=== PATIENT | female | born 1950 | race Caucasian/White ===

== ENCOUNTER 2017-01-01 22:52 | Inpatient (IN) | payer BC, MEDICAID ==
[~2017-01-01] VITALS: Ht 157.5 cm; Wt 106.8 kg
--- NOTE | 2017-01-01 22:53 | NUR ---
Patient to ER bed 4 to gown for evaluation. Side rails up. Report given to Jacquelyn BRAY.
[2017-01-01 23:00] VITALS: BP 139/62; PULSE 105; RESP 16; TEMP 97.5; O2SAT 99
--- NOTE | 2017-01-01 23:01 | NUR ---
Patient sent to ER from [facility] C/O severe constipation. Patient states that she is taking narcotic pain medication for severe pain and is constipated. States the facility gave her MOM but the nurse spilled it all before she got it. 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
--- NOTE | 2017-01-01 23:02 | NUR ---
ER MD Latif at bedside for evaluation
[2017-01-01] MEDS ORDERED: LACTULOSE 20 GM/30 ML UDC PO ONE (23:15)
[2017-01-01] MEDS ORDERED: ALBU2.5V7 INH (23:16)
[2017-01-01] MEDS ORDERED: ASPI-1063 PO (23:21)
[2017-01-01] MEDS ORDERED: NOR10 PO (23:21)
[2017-01-01] MEDS ORDERED: LIP20 PO (23:21)
[2017-01-01] MEDS ORDERED: AMLO10TA88 PO (23:21)
[2017-01-01] MEDS ORDERED: DIPH25CA83 PO (23:23)
[2017-01-01] MEDS ORDERED: CALC667T5 PO (23:29)
[2017-01-01] MEDS ORDERED: FURO40TA5 PO (23:30)
[2017-01-01] MEDS ORDERED: FOLI-43 PO (23:30)
[2017-01-01 23:31] LABS: BASOPHILS # (AUTO) 0.1 K/uL (0.0-0.2); EOSINOPHILS # (AUTO) 0.4 K/uL (0.0-0.4); HEMATOCRIT 25.4 % (36-48); LYMPHOCYTES # (AUTO) 1.3 K/uL (1.0-5.5); MEAN CORPUSCULAR VOLUME 94 fL (79.0-98.0)
[2017-01-01] MEDS ORDERED: GABA-533 PO (23:31)
[2017-01-01] MEDS ORDERED: INSU100V11 SQ (23:32)
[2017-01-01] MEDS ORDERED: METO-442 PO (23:33)
[2017-01-01 23:34] LABS: BASOPHILS % (AUTO) 0.6 % (0.0-2.0); EOSINOPHILS % (AUTO) 3.7 % (0.0-4.0); LYMPHOCYTES % (AUTO) 10.7 % (20.5-51.5); MEAN CORPUSCULAR HEMOGLOBIN 30 pg (27-31); MEAN CORPUSCULAR HGB CONC 32 % (32-36); MONOCYTES # (AUTO) 0.7 K/uL (0.0-1.0); MONOCYTES % (AUTO) 6.1 % (1.7-9.3); NEUTROPHILS # (AUTO) 9.2 K/uL (1.8-7.7); NEUTROPHILS % (AUTO) 78.9 % (40.0-70.0); PLATELET COUNT (AUTO) 387 K/uL (130-430); RED CELL DISTRIBUTION WIDTH 19.6 % (9.0-15.0); WHITE BLOOD COUNT (AUTO) 11.7 K/uL (4.8-10.8)
[2017-01-01] MEDS ORDERED: HYDR-1189 PO (23:34)
[2017-01-01] MEDS ORDERED: AMIN30LI2 PO (23:34)
[2017-01-01] MEDS ORDERED: TRAM50TA92 PO (23:35)
[2017-01-01] MEDS ORDERED: FOLI0.8T2 PO (23:35)
[2017-01-01 23:37] LABS: CALCIUM 9.1 mg/dL (8.4-11.0); CREATININE 2.43 mg/dL (0.55-1.30); POTASSIUM 3.4 mmol/L (3.5-5.1)
[2017-01-01] MEDS ORDERED: INSU100V32 SUBCUT (23:40)
[2017-01-01 23:41] LABS: PROTHROMBIN TIME 11.2 SECS (9.5-12.5)
--- NOTE | 2017-01-01 23:43 | NUR ---
Medication reconciliation completed with information provided by Kate garcia.
[2017-01-01 23:44] LABS: TOTAL BILIRUBIN 0.4 mg/dL (0.0-1.0)
[2017-01-01 23:45] LABS: ALBUMIN 2.5 g/dL (3.4-4.8); TOTAL PROTEIN, SERUM 6.3 g/dL (6.4-8.3)
[2017-01-02] VITALS (9 sets, daily range): BP systolic 105–131; BP diastolic 58–75; PULSE 74–100; RESP 16–20; TEMP 96.4–98.2; O2SAT 91–100
--- NOTE | 2017-01-02 00:21 | NUR ---
# 20 gauge angiocath placed to right ac. Use of asceptic technique. Opsite placed over site. Blood return noted. Flushed with 10 cc of normal saline. No evidence of infiltration noted. Patient tolerated well.
[2017-01-02] MEDS ORDERED: ALBUTEROL SULFATE 0.083% 2.5 MG/3 ML VIAL.NEB INH PRN (00:45)
--- NOTE | 2017-01-02 01:00 | NUR ---
Patient will be admitted to care of DR MENDOSA. Admitted to [facility] IN unit. Will go to room 135. Belongings list completed. Summary report printed. Report given to ASA.
--- NOTE | 2017-01-02 01:12 | NUR ---
Transfer to [facility]. IV present no sign or symptom of infiltration.
[2017-01-02] MEDS ORDERED: NA PHOS,M-B/NA PHOS,DI-BA 118 ML (FLEET ENEMA) RC ONE (01:15)
--- NOTE | 2017-01-02 01:19 | NUR ---
CONSULTATION PAGED REASON FOR CONSULTATION:ESRD-DIALYSIS WAS CONSULT CALLED?Y PERSON WHO WAS NOTIFIED:MATTY CONSULTING PHYSICIAN:JOCY POLO (RENÉE LYON WARNING COORDINATION METEOROLOGIST) PRINCIPAL SOFTWARE ARCHITECT SPECIALTY:NEPHROLOGY PRINCIPAL SOFTWARE ARCHITECT PHONE NUMBER:[phone]
--- NOTE | 2017-01-02 01:19 | NUR ---
ADMISSION NOTE Received patient from ER via gurney. Patient admitted with diagnosis of severe constipation. Patient is awake, alert, oriented X 3. Patient oriented to hospital room, call light, toileting, pain management and safety-teach back done. Patient informed that Elsa will be her nurse and that their room number is 105b. Personal belongings checked and Belongings List documented. Call light within reach.
--- NOTE | 2017-01-02 01:25 | NUR ---
INITIAL NOTE Patient resting on the bed. Respiration even and unlabored. No acute distress. Skin warm and dry to touch. SL intact to RAC, no redness, no swelling, patent. AV shunt on left upper thigh intact with bruit/thrill present, no bleeding. Per patient a new AV shunt on left upper arm not used yet, intact with multiple terrence, no bleeding, bruit/thrill present. Multiple wounds on the left foot and left lower extremity. Left second toes amputation with multiple sutures and black color around all the toes. Discussed the safety issue, use call light when need help, and plan of care, verbally understanding. safety measure maintained. Call light within reached. Bed in low position, bed alarm on, side rails up. Will continue to monitor.
[2017-01-02] MEDS: MORPHINE 2 MG/ML INJ. SYRINGE IVP PRN (02:46)
--- NOTE | 2017-01-02 03:15 | NUR ---
ROUND Patient resting on the bed with eyes closed. No acute distress. Safety measure maintained. Bed in low position, side rails up, bed alarm on. Call light within reached. Continue to monitor.
--- NOTE | 2017-01-02 05:05 | NUR ---
ROUND Patient resting on the bed with eyes closed. No acute distress. Call light within reached. Safety measure maintained. Bed in low position, side rails up, bed alarm on. Continue to monitor.
--- NOTE | 2017-01-02 05:19 | NUR ---
CALLED DR. MENDOSA [facility] REGARDING ORDER OF FLEET ENEMA Informed Dr. Mendosa the order of fleet enema not given yet because fleet enema is contraindicated with renal failure patient and patient on hemodialysis. Dr. Mendosa with order to DC fleet enema and GI consult with Dr. Coffey. Order read back and okay to
--- NOTE | 2017-01-02 05:30 | NUR ---
CONSULT: CONSULT CALLED FOR DR. CHACON I SPOKE WITH MATTY HILL REASON FOR CONSULT: SEVERE FECAL IMPACTION NUMBER I CALLED [phone] MENDOSA
--- NOTE | 2017-01-02 06:40 | NUR ---
CLOSING NOTE Patient resting on the bed. Respiration even and unlabored. No acute distress. Skin warm and dry to touch. SL intact to RAC, no redness, no swelling, patent. VS stable. Still no BM at this time. Safety measure maintained. Call light within reached. Bed in low position, bed alarm on, side rails up. Will endorse to morning shift nurse.
[2017-01-02 06:59] LABS: BASOPHILS % (AUTO) 0.4 % (0.0-2.0); EOSINOPHILS # (AUTO) 0.4 K/uL (0.0-0.4); EOSINOPHILS % (AUTO) 3.8 % (0.0-4.0); HEMATOCRIT 24.1 % (36-48); HEMOGLOBIN 7.7 g/dL (12.0-16.0); LYMPHOCYTES # (AUTO) 1.7 K/uL (1.0-5.5); LYMPHOCYTES % (AUTO) 15.9 % (20.5-51.5); MEAN CORPUSCULAR HEMOGLOBIN 30 pg (27-31); MEAN CORPUSCULAR HGB CONC 32 % (32-36); MEAN CORPUSCULAR VOLUME 94 fL (79.0-98.0); MONOCYTES # (AUTO) 1.1 K/uL (0.0-1.0); MONOCYTES % (AUTO) 10.8 % (1.7-9.3); NEUTROPHILS # (AUTO) 7.4 K/uL (1.8-7.7); NEUTROPHILS % (AUTO) 69.1 % (40.0-70.0); PLATELET COUNT (AUTO) 401 K/uL (130-430); RED BLOOD CELL COUNT(AUTO) 2.56 MIL/uL (4.2-6.2); RED CELL DISTRIBUTION WIDTH 19.8 % (9.0-15.0); WHITE BLOOD COUNT (AUTO) 10.6 K/uL (4.8-10.8)
[2017-01-02 07:16] LABS: ALBUMIN 2.5 g/dL (3.4-4.8); CALCIUM 9.4 mg/dL (8.4-11.0); CREATININE 2.78 mg/dL (0.55-1.30); POTASSIUM 3.5 mmol/L (3.5-5.1); TOTAL BILIRUBIN 0.3 mg/dL (0.0-1.0); TOTAL PROTEIN, SERUM 6.4 g/dL (6.4-8.3)
--- NOTE | 2017-01-02 08:30 | NUR ---
AM ROUNDS Late entry due to patient care. Patient received, alert awake and oriented x4. VSS. Patient denies pain and SOB at this time. Respirations even and unlabored. youth nutritional monitor in place, rhythm noted. IV site patent and intact. Patient tolerated breakfast well. Plan of care discussed, patient verbalized understanding. No further needs at this time. Encouraged patient to call for assistance, patient verbalized understanding. Safety and fall precautions in place, call light within reach. Will continue to monitor. Addendum: 01/02/17 at 1001 by Sabrina Love RN WRONG PATIENT ENTRY PLEASE DISREGARD.
[2017-01-02] MEDS: ASPIRIN 81 MG TABLET(ECOTRIN) PO SCH (08:37)
[2017-01-02] MEDS: FUROSEMIDE 40 MG TABLET PO SCH (08:37)
[2017-01-02] MEDS: NEPHROVITE, (FOLIC ACID/VITAMIN B COMP W-C 1 TAB) PO SCH (08:37)
[2017-01-02] MEDS: METOPROLOL TARTRATE 50 MG TABLET PO SCH (08:38)
[2017-01-02] MEDS: amLODIPine BESYLATE 10 MG TABLET PO SCH (08:39)
[2017-01-02] MEDS: GABAPENTIN 400 MG CAPSULE PO SCH ×3 (08:39→21:21)
--- NOTE | 2017-01-02 08:41 | NUR ---
AM ROUNDS Patient received, alert awake and oriented x4. VSS. Patient denies pain at this time, states SOB when eating only. Oxygen saturation WNL, respirations even and unlabored. Patient has poor appetite at this time. IV site patent and intact. Left shunt noted, patient stated it has not been used for dialysis yet. HD access is to left lower extremity. Left foot necrosis noted. Right foot heel wound noted. Plan of care discussed, patient verbalized understanding. No further needs at this time. Safety and fall precautions in place, call light within reach. Will continue to monitor.
[2017-01-02] MEDS ORDERED: NON-FORMULARY MEDICATION (Amino Acids/Protein Hydrolys (Pro-Stat Liquid) 30 ML) PO SCH (09:00)
--- NOTE | 2017-01-02 10:00 | NUR ---
ROUNDS Late entry due to patient care. Patient repositioned with pillow support, denied pain or SOB at this time. No further needs, will continue to monitor.
[2017-01-02] MEDS ORDERED: BISACODYL 5 MG TABLET.DR (DULCOLAX) PO ONE (11:15)
--- NOTE | 2017-01-02 11:36 | NUR ---
CALLED SURGICAL CONSULT DR CROW, RE: L FOOT GANGRENE. SPOKE TO HIM ON HIS CELL
--- NOTE | 2017-01-02 12:00 | NUR ---
ROUNDS Late entry due to patient care. Patient awake, denies pain at this time. Patient has poor appetite, encouraged to eat, patient only drank liquids at this time. No further needs. Will continue to monitor.
[2017-01-02] MEDS ORDERED: PANTOPRAZOLE SODIUM 40 MG TAB PO ONE (12:15)
[2017-01-02 12:22] LABS: BLOOD GAS PH 7.403 (7.350-7.450)
[2017-01-02 12:23] LABS: ABG TOTAL HEMOGLOBIN 9.1 G/dL (12.0-18.0); BLOOD GAS BASE EXCESS 7.2 mmol/L (-3.0-3.0); BLOOD GAS COHb% 1.1 % (0.5-1.5); BLOOD GAS HHB 16.1 % (0.0-6.0); BLOOD O2Hb% 82.5 % (94.0-97.0)
--- NOTE | 2017-01-02 14:30 | NUR ---
ROUNDS Patient repositioned with pillow support, scant semi formed brown bowel movement noted. No further needs at this time. Safety and fall precautions in place, call light within reach, will continue to monitor. Dr. Araya at beside.
[2017-01-02] MEDS: HYDROcodone/ACETAMIN 5-325 MG TAB (NORCO/ VICODIN) PO PRN (15:24)
--- NOTE | 2017-01-02 16:29 | NUR ---
ROUNDS Patient sleeping at this time, chest rise noted. No acute distress. Will continue to monitor. Safety and fall precautions in place, call light within reach. Will continue to monitor.
--- NOTE | 2017-01-02 18:03 | NUR ---
CLOSING NOTE Patient repositioned with pillow support. Blood sugar 131 no insulin coverage need. Dinner at bedside, patient stated she "wanted to sleep" at this time. Heels elevated with pillow support. No significant change in patient status. All needs met throughout shift, safety and fall precautions in place, call light within reach. Will endorse to next shift.
[2017-01-02] MEDS: traMADol HCL HCL 50 MG TABLET (ULTRAM) PO PRN (18:54)
--- NOTE | 2017-01-02 19:15 | NUR ---
change iof shift.pt.presents stable status.pt.presents o2 @room air:pt.states she is fine w/out the o2 vis nasal cannulae @this hour.iv lock:@located rt.antecubital.lower extremity involvement.rt.leg;cellulitis.lt.foot:gangrene. consulted 4 surgery;pt.preference is :who familiar w/ pt.pt.presents lt.groin av-shunt.lt.arm av-shunt; recent placement:not accessed.pt.is 2 b dialized in am:01/03/17.
--- NOTE | 2017-01-02 20:00 | NUR ---
pt.assessed.v/s assessed.values w/in normal limits.pt.repositioned.no request:@this hour.call light palced w/in pt's reach.
[2017-01-02] MEDS ORDERED: INSULIN GLARGINE 100 UNITS/ML 10 ML VIAL SUBCUT SCH (21:00)
--- NOTE | 2017-01-02 21:00 | NUR ---
2100p medications administered.blood glucose assessed.150mg/dl:no insulin coverage per slding scale. i have administered levemir:15-units.opt.requested cup of tea.kami provided the tea.
[2017-01-02] MEDS: ATORVASTATIN 20 MG TABLET PO SCH (21:21)
--- NOTE | 2017-01-02 22:00 | NUR ---
pt.assessed.pt.repositioned.pt.presents quiescent status.calm,asleep.call light palced w/in pt's reach.
--- NOTE | 2017-01-03 | NUR ---
pt.assessed.pt. repositioned.no distress/discomfort manifested:pillow placed underneath lt.leg/foot. call light placed w/in pt.reach.
[2017-01-03 00:03] VITALS: BP 137/64; PULSE 81; RESP 18; TEMP 98.1; O2SAT 91
--- NOTE | 2017-01-03 02:00 | NUR ---
pt.assessed.pt.repositioned.pt.presents quiescent affect;calm,asleep.no distress./discomfort manifested. call light placed w/in pt's reach.
[2017-01-03] MEDS: HYDROcodone/ACETAMIN 5-325 MG TAB (NORCO/ VICODIN) PO PRN ×4 (03:39→23:31)
--- NOTE | 2017-01-03 03:45 | NUR ---
pt.requested pain medication.i have administered norco:5/325mg po 1 tab.2 f/u re:pain med efficacy.
[2017-01-03 04:09] VITALS: BP 115/59; PULSE 84; RESP 20; TEMP 98.1; O2SAT 94
--- NOTE | 2017-01-03 06:08 | NUR ---
pt.assessed.pt.presents quiescent affect;calm,asleep,has eaten snack.no request @ this hour. call light palcici w/in pt's reach.
--- NOTE | 2017-01-03 06:13 | NUR ---
blood glucose:x2 74,75mg/dl.pt.2 continue w/ snack.pt.presents asymptomatic status.
[2017-01-03 08:00] VITALS: BP_SYST 133; BP_SYST 134; BP_DIAS 61; BP_DIAS 74; PULSE 86; PULSE 93; RESP 20; TEMP 97.6; O2SAT 91; O2SAT 99
--- NOTE | 2017-01-03 08:00 | NUR ---
OPENING NOTE RECEIVED REPORT FROM NIGHT NURSE, PATIENT IS RESTING COMFORTABLY IN BED WITH NO COMPLAINTS OF PAIN, NO NOTED DISTRESS, DISCOMFORT OR SOB. PATIENT IS ALERT AND ORIENTED AND ABLE TO COMMUNICATE NEEDS TO STAFF. PATIENT IS BEDREST. PATIENT IS SUPPOSE TO HAVE DIALYSIS TODAY AND CONSENT WAS OBTAINED. BED IS IN LOWEST POSITION AND PATIENT IS EDUCATED NOT TO GET UP UNASSISTED. CALL LIGHT IS WITHIN REACH AND WILL CONTINUE TO MONITOR.
[2017-01-03] MEDS: amLODIPine BESYLATE 10 MG TABLET PO SCH (09:00)
[2017-01-03] MEDS: GABAPENTIN 400 MG CAPSULE PO SCH ×3 (09:00→21:38)
[2017-01-03] MEDS: METOPROLOL TARTRATE 50 MG TABLET PO SCH (09:00)
[2017-01-03] MEDS ORDERED: SORBITOL 70% SOLUTION, 30 ML UDBTL PO ONE (09:15)
[2017-01-03 09:31] LABS: BASOPHILS # (AUTO) 0.1 K/uL (0.0-0.2); BASOPHILS % (AUTO) 0.7 % (0.0-2.0); EOSINOPHILS # (AUTO) 0.7 K/uL (0.0-0.4); EOSINOPHILS % (AUTO) 7.4 % (0.0-4.0); HEMATOCRIT 25.3 % (36-48); HEMOGLOBIN 7.7 g/dL (12.0-16.0); LYMPHOCYTES # (AUTO) 1.5 K/uL (1.0-5.5); LYMPHOCYTES % (AUTO) 14.9 % (20.5-51.5); MEAN CORPUSCULAR HEMOGLOBIN 29 pg (27-31); MEAN CORPUSCULAR HGB CONC 31 % (32-36); MEAN CORPUSCULAR VOLUME 95 fL (79.0-98.0); MONOCYTES # (AUTO) 1.1 K/uL (0.0-1.0); MONOCYTES % (AUTO) 11.4 % (1.7-9.3); NEUTROPHILS # (AUTO) 6.5 K/uL (1.8-7.7); NEUTROPHILS % (AUTO) 65.6 % (40.0-70.0); PLATELET COUNT (AUTO) 401 K/uL (130-430); RED BLOOD CELL COUNT(AUTO) 2.66 MIL/uL (4.2-6.2); RED CELL DISTRIBUTION WIDTH 20.2 % (9.0-15.0); WHITE BLOOD COUNT (AUTO) 9.9 K/uL (4.8-10.8)
--- NOTE | 2017-01-03 09:37 | NUR ---
CALLED GI CONSULT TO DR LANGLEY RE; FECAL IMPACTION. HE WAS IN OUR ICU, SPOKE TO CRYSTAL
[2017-01-03 09:44] LABS: CALCIUM 8.9 mg/dL (8.4-11.0); CREATININE 4.02 mg/dL (0.55-1.30); PHOSPHORUS 3.7 mg/dL (2.7-4.5); POTASSIUM 3.9 mmol/L (3.5-5.1)
--- NOTE | 2017-01-03 10:15 | NUR ---
NOTE PATIENT IS RESTING IN BED HAVING DIALYSIS AND TOLERATING IT WELL. PATIENT HAS SOME COMPLAINTS OF PAIN, AND PAIN MEDICATION WAS GIVEN. NO NOTED DISTRESS, DISCOMFORT OR SOB. BED IS IN LOWEST POSITION AND CALL LIGHT IS WITHIN REACH. WILL CONTINUE TO MONITOR.
--- NOTE | 2017-01-03 10:22 | NUR ---
Nutrition Update Ar Scale 10 noted. Pt admitted for severe fecal impaction. Diet: [facility] BMI: 43.7 kg/m2 RD to follow per nutrition care standards.
[2017-01-03 11:51] VITALS: Ht 157.5 cm; Wt 106.8 kg
[2017-01-03] MEDS: INSULIN REGULAR, HUMAN 100 UNITS/ML, 10 ML VIAL (novoLIN R) SUBCUT PRN ×2 (11:59→17:41)
[2017-01-03 12:10] VITALS: BP 128/60; PULSE 81; RESP 18; TEMP 98; O2SAT 98
--- NOTE | 2017-01-03 12:39 | NUR ---
NOTE PATIENT IS RESTING IN BED COMFORTABLY WITH NO COMPLAINTS OF PAIN, NO NOTED DISTRESS, DISCOMFORT OR SOB. DIALYSIS JUST FINISHED AND THE RN TOOK OUT 2 LITERS, PATIENT TOLERATED IT WELL. BED IS IN LOWEST POSITION AND CALL LIGHT IS WITHIN REACH. PATIENT IS GOING TO HAVE A COLONOSCOPY AND CONSENT WAS OBTAINED. WILL CONTINUE TO MONITOR.
[2017-01-03] MEDS: NEPHROVITE, (FOLIC ACID/VITAMIN B COMP W-C 1 TAB) PO SCH (14:07)
[2017-01-03] MEDS: PANTOPRAZOLE SODIUM 40 MG TAB PO SCH (14:08)
[2017-01-03] MEDS: ASPIRIN 81 MG TABLET(ECOTRIN) PO SCH (14:08)
[2017-01-03] MEDS: FUROSEMIDE 40 MG TABLET PO SCH (14:09)
--- NOTE | 2017-01-03 14:30 | NUR ---
NOTE PATIENT IS RESTING COMFORTABLY IN BED WITH NO COMPLAINTS OF PAIN, NO NOTED DISTRESS, DISCOMFORT OR SOB. BED IS IN LOWEST POSITION AND CALL LIGHT IS WITHIN REACH. WILL CONTINUE TO MONITOR.
--- NOTE | 2017-01-03 16:17 | NUR ---
WOUND CARE DELMY AND Coty WENT IN TO DO WOUND CARE ON THE PATIENT'S LOWER EXTREMITIES AND BUTTOCK, MEASUREMENTS WERE TAKEN AND ON THE LEFT FOOT , CALF THERE WAS SUREPREP APPLIED AND FOAM DRESSING AND WRAPPED WITH KERLIX, THE RIGHT HEEL WAS SUREPREP AND FOAM DRESSING AND KERLIX WAS APPLIED, THE BUTTOCK HAD Z GUARD APPLIED AND FOAM DRESSING. PATIENT TOLERATED IT WELL, ASKED FOR PAIN MEDICATION, WHICH WAS GIVEN. BED IN LOWEST POSITION AND CALL LIGHT IS WITHIN REACH. WILL CONTINUE TO MONITOR
--- NOTE | 2017-01-03 16:17 | NUR ---
WOUND EVALUATION: Wound Consult received from Dr. Flanagan. Thank you, Dr. Flanagan, for the consult. Patient received in a [place] Bed with a mattress, awake, alert, and oriented. Patient is unable to turn independently. Ar Score is a 10. Past Medical History: Recent left upper extremity AV Shunt Placement, AV graft in the left thigh, severe Peripheral Vascular Disease, possible Osteomyelitis, history of left foot second toe amputation, End-Stage Renal Disease, Diabetes Mellitus, Diabetic Neuropathy, Retinopathy, and Peripheral Arterial Disease. Recent Labs: WBC 9.9, RBC 2.66, Hgb 7.7, Hct 25.3, BUN 21, Creat 4.02, GFR 12, Gluc 122, Mg 2.4, Alb 2.5. Intrinsic factors that delay wound healing: Extrinsic factors that delay wound healing: Decreased mobility. Microbiology: MRSA Screen negative. Wound Assessment: 1) Left Dorsal Foot (Between Great Toe and Second Toe amputation site): Chronic Wound, present on admission. Wound bed is 100% black gangrene tissue. No odor, no drainage. Cher-wound intact. There appears to be sutures in place. Measures 4.3 cm x 2.0 cm x 0.9 cm. Third, Fourth, and Fifth Toes have dry, black gangrene. 2) Left Heel: Chronic wound, present on admission. Wound bed is 100% black eschar. No odor, no drainage. Cher-wound intact, reddened. Measures 10.9 cm x 7.1 cm. 3) Left Posterior Calf: Chronic wound, present on admission. Wound bed is 95% black eschar, 5% yellow slough. No odor, no drainage. Cher-wound intact, pink. Measures 10.7 cm x 5.2 cm. 4) Left Heel, Inferior and Anterior to Wound 2): Chronic wound, present on admission. Wound bed is 100% black eschar. No odor, no drainage. Cher-wound intact. Measures 4.1 cm x 3.0 cm. 5) Left Calf, Inferior and Posterior to Wound 3): Chronic wound, present on admission. Wound bed is 90% black eschar, 10% yellow tissue. No odor, no drainage, dry. Cher-wound intact, reddened. Measures 7.0 cm x 2.5 cm. Recommend: Cleanse wounds with normal saline. Pat dry. Put SurePrep onto cher-wounds. Cover with foam dressings. Wrap with estefani wrap. Perform wound care daily, and as needed for dressing soiling or dislodgement. Contact wound care if wounds begin to drain or worsen. 6) Right Lateral Heel: Closed Bulla, present on admission. Wound bed is 100% yellow bulla, soft. No odor, no drainage. Cher-wound intact. Measures 2.0 cm x 2.5 cm. Will continue to monitor for probable worsening condition. Recommend: Cleanse wound with normal saline. Pat dry. Put SurePrep onto cher-wound. Cover with foam dressing. Wrap with estefani wrap. Perform wound care daily, and as needed for dressing soiling or dislodgement. Contact wound care if wound begins to drain or worsen. 7) Right Buttock: Wound, present on admission. Wound bed is 100% dull pink tissue. No odor, no drainage. Cher-wound intact. Measures 1.2 cm x 0.8 cm x 0.1 cm. Dry, stable. 8) Right Buttock, Inferior to Wound 7): Dark, discolored spot, present on admission. No odor, no drainage. Measures 0.3 cm x 0.6 cm. 9) Right Buttock, Medial to Wound 7): Scar tissue, present on admission. No odor, no drainage. 10) Coccyx, (Superior to): Scar tissue, present on admission, with dry, flaky skin. No odor, no drainage. 0.1 cm divot present. Recommend: Cleanse sites with normal saline. Pat dry. Put moisture barrier cream onto sites. Cover with Sacral foam dressing. Perform wound care daily, and as needed for dressing soiling or dislodgement. Contact wound care if sites worsen. Also recommend: Reposition patient side to side only every 2 hours with pillow support, and off-load pressure areas with pillows for pressure re-distribution. Offload, elevate and float bilateral heels with pillows. Perform skin care and monitor skin integrity Q shift. Use moisture barrier cream on buttocks and other moisture susceptible areas QID and as needed for soiling. Maintain patient on a low air-loss mattress. Recommend surgical consult for bilateral lower extremity wounds. Dr. Araya is on surgical consult.
[2017-01-03 16:32] VITALS: BP 134/55; PULSE 90; RESP 20; TEMP 98.7; O2SAT 95
[2017-01-03] MEDS ORDERED: BISACODYL 5 MG TABLET.DR (DULCOLAX) PO ONE (17:00)
[2017-01-03] MEDS ORDERED: EPOETIN ALFA 4,000 UNITS/ML VIAL SUBCUT SCH (17:00)
[2017-01-03] MEDS ORDERED: GOLYTELY / COLYTE SOLUTION 4 LITERS PO ONE (18:00)
--- NOTE | 2017-01-03 18:11 | NUR ---
CLOSING NOTE PATIENT IS RESTING IN BED COMFORTABLY WITH NO COMPLAINTS OF PAIN, NO NOTED DISTRESS, DISCOMFORT OR SOB. PATIENT'S BS WAS CHECKED AND IT 158 AND 2 UNITS OF REGULAR INSULIN WAS GIVEN WITH AN RN TO WITNESS. BED IS IN LOWEST POSITION, CALL LIGHT IS WITHIN REACH AND PATIENT IS EDUCATED NOT TO GET UP WITHOUT ASSISTANCE. WILL GIVE REPORT TO NIGHT NURSE.
--- NOTE | 2017-01-03 19:27 | NUR ---
OPENING NOTES REPORT RECEIVED FROM DAY SHIFT NURSE AT BEDSIDE. NO SIGNS OR SYMPTOMS OF DISTRESS NOTED, PATIENT RESTING COMFORTABLY. HAWA AT BEDSIDE, PATIENT INSTRUCTED TO DRINK AND SHE WILL BE NPO AT MIDNIGHT. BED IN LOWEST POSITION, BED ALARM ON, CALL LIGHT WITHIN REACH WILL CONTINUE TO MONITOR.
[2017-01-03 19:54] VITALS: BP 123/58; PULSE 87; RESP 24; TEMP 97.7; O2SAT 94
--- NOTE | 2017-01-03 20:20 | NUR ---
DR MENDOSA PAGED AND ANSWERED REGARDING NPO ORDERED D5NS @ 50 ML/HR.
[2017-01-03] MEDS ORDERED: D5NS 1,000 ML IV SCH (20:45)
[2017-01-03] MEDS: ATORVASTATIN 20 MG TABLET PO SCH (21:37)
--- NOTE | 2017-01-03 22:15 | NUR ---
ROUNDS PATIENT RESTING, SITTING UPRIGHT WATCHING TELEVISION. IV CONTINUES TO ALARM. PATIENT EDUCATED ON IV SITE AND RUNNING FLUIDS, PATIENT VERBALIZED UNDERSTANDING. NO SIGNS OR SYMPTOMS OF DISTRESS NOTED. BED IN LOWEST POSITION, BED ALARM ON, CALL LIGHT WITHIN REACH. PATIENTS ROOM ACROSS FROM NURSING STATION. WILL CONTINUE TO MONITOR.
--- NOTE | 2017-01-03 23:40 | NUR ---
ROUNDS PATIENT COMPLAINS OF PAIN. PATIENT IS RESTING, SITTING UPRIGHT WATCHING TELEVISION. PATIENT PROVIDED MEDICATION PER ORDERS. WILL REASSESS. NO SIGNS OR SYMPTOMS OF DISTRESS NOTED. BED IN LOWEST POSITION, BED ALARM ON, CALL LIGHT WITHIN REACH. WILL CONTINUE TO MONITOR
[2017-01-04 00:57] VITALS: BP 110/68; PULSE 91; RESP 19; TEMP 97.4; O2SAT 93
--- NOTE | 2017-01-04 01:30 | NUR ---
ROUNDS PATIENT STATES SHE IS STILL IN PAIN AND IS REQUESTING ADDITIONAL PAIN MEDICATION. PAIN MEDICATION PROVIDED PER ORDERS. WILL REASSESS. NO SIGNS OR SYMPTOMS OF DISTRESS NOTED. BED IN LOWEST POSITION, BED ALARM ON, CALL LIGHT WITHIN REACH. WILL CONTINUE TO MONITOR
[2017-01-04] MEDS: traMADol HCL HCL 50 MG TABLET (ULTRAM) PO PRN ×2 (01:33→23:13)
--- NOTE | 2017-01-04 01:34 | NUR ---
ROUNDS PATIENT STATED SHE WAS IN PAIN 6/10. PROVIDED MEDICATION ORDERED. WILL REASSESS IN ONE HOUR.
--- NOTE | 2017-01-04 02:30 | NUR ---
ROUNDS PATIENT RESTING, SITTING UPRIGHT WATCHING TELEVISION. IV CONTINUES TO ALARM. PATIENT EDUCATED ON IV SITE AND RUNNING FLUIDS, PATIENT VERBALIZED UNDERSTANDING. A SPLINT WAS ADDED TO RIGHT ARM UNDER IV SITE. PATIENT UNDERSTANDS THAT IF IV CONTINUES TO ALARM, A NEW IV WILL HAVE TO BE STARTED. PATIENT REFUSES TO ALLOW A NEW IV START STATING, "I AM A HARD STICK." NO SIGNS OR SYMPTOMS OF DISTRESS NOTED. BED IN LOWEST POSITION, BED ALARM ON, CALL LIGHT WITHIN REACH. WILL CONTINUE TO MONITOR
--- NOTE | 2017-01-04 03:57 | NUR ---
UNSUCCESSFUL BOWEL MOVEMENT NOTED PT STRUGGLING TO HAVE BOWEL MOVEMENT. NOTED STUCK SOLID STOOL, ASSISTED WITH DIGITAL DE-COMPACTION. PT WAS THEN ABLE TO PUSH OUT A LARGE AMOUNT OF SOLID BROWN STOOL. PT ALMOST DONE DRINKING GOLYTELY. WILL CONTINUE TO ENCOURAGE HER TO FINISH GOLYTELY.
[2017-01-04 04:00] VITALS: BP 142/76; PULSE 91; RESP 20; TEMP 97.3; O2SAT 96
--- NOTE | 2017-01-04 06:00 | NUR ---
ENEMA PATIENT GIVEN ENEMA. PATIENT EXTREMELY IMPACTED.
--- NOTE | 2017-01-04 07:06 | NUR ---
CLOSING NOTES PATIENT WAS GIVEN AN ENEMA, STOOL WAS FORMED TO START, GRADUALLY BECOMING LIQUID. STOOL REMAINS BROWN. PATIENT SITTING UP IN BED WATCHING TELEVISION. BED IN LOWEST POSITION, BED ALARM ON, CALL LIGHT WITHIN REACH. WILL ENDORSE CARE TO DAY SHIFT NURSE.
--- NOTE | 2017-01-04 07:30 | NUR ---
GUERA SCHMIDT/BOWEL PREP UNSUCCESSFUL TAP WATER ENEMAS PERFORMED, SOLID STOOL PASSED. STOOL EVENTUALLY TURNED GREEN LIQUID WITH SEDIMENTS. NOT CLEAR. ENDORSED TO AM NURSE DARYA ONLY RESULTED IN TWO BOWEL MOVEMENTS OF HARD STOOL.
[2017-01-04] MEDS: HYDROcodone/ACETAMIN 5-325 MG TAB (NORCO/ VICODIN) PO PRN ×2 (07:34→19:46)
[2017-01-04 07:57] LABS: BASOPHILS % (AUTO) 0.5 % (0.0-2.0); EOSINOPHILS # (AUTO) 0.7 K/uL (0.0-0.4); EOSINOPHILS % (AUTO) 8.1 % (0.0-4.0); HEMATOCRIT 26.4 % (36-48); HEMOGLOBIN 8.3 g/dL (12.0-16.0); LYMPHOCYTES # (AUTO) 1.5 K/uL (1.0-5.5); LYMPHOCYTES % (AUTO) 16.5 % (20.5-51.5); MEAN CORPUSCULAR HEMOGLOBIN 30 pg (27-31); MEAN CORPUSCULAR HGB CONC 31 % (32-36); MEAN CORPUSCULAR VOLUME 94 fL (79.0-98.0); MONOCYTES % (AUTO) 10.7 % (1.7-9.3); NEUTROPHILS # (AUTO) 5.7 K/uL (1.8-7.7); NEUTROPHILS % (AUTO) 64.2 % (40.0-70.0); PLATELET COUNT (AUTO) 457 K/uL (130-430); RED CELL DISTRIBUTION WIDTH 19.8 % (9.0-15.0); WHITE BLOOD COUNT (AUTO) 8.9 K/uL (4.8-10.8)
[2017-01-04 08:00] VITALS: BP 128/59; PULSE 91; RESP 18; TEMP 97.5; O2SAT 96
[2017-01-04] MEDS ORDERED: MAGNESIUM CITRATE 300 ML ORAL SOLUTION PO ONE (08:00)
--- NOTE | 2017-01-04 08:00 | NUR ---
initial notes rec patient asleep but arousable to stimuli.. ivf infusing well on the l ac. no infiltration noted. npo for colonoscopy today. denies pain. mg citrate was given and will wait for result of the med. resp easy and unlabored patient, with hob elevated. bed in low position and side rails up and locked. call light within reached and knows when to call for assistance.
[2017-01-04 08:04] LABS: CALCIUM 8.8 mg/dL (8.4-11.0); CREATININE 3.14 mg/dL (0.55-1.30); POTASSIUM 3.3 mmol/L (3.5-5.1)
[2017-01-04 08:08] LABS: PROTHROMBIN TIME 10.9 SECS (9.5-12.5)
[2017-01-04] MEDS: NEPHROVITE, (FOLIC ACID/VITAMIN B COMP W-C 1 TAB) PO SCH (09:00)
[2017-01-04] MEDS: GABAPENTIN 400 MG CAPSULE PO SCH ×3 (09:00→22:57)
[2017-01-04] MEDS: FUROSEMIDE 40 MG TABLET PO SCH (09:00)
[2017-01-04] MEDS: METOPROLOL TARTRATE 50 MG TABLET PO SCH (09:00)
[2017-01-04] MEDS: amLODIPine BESYLATE 10 MG TABLET PO SCH (09:00)
[2017-01-04] MEDS: ASPIRIN 81 MG TABLET(ECOTRIN) PO SCH (09:00)
[2017-01-04] MEDS: PANTOPRAZOLE SODIUM 40 MG TAB PO SCH (09:00)
--- NOTE | 2017-01-04 10:00 | NUR ---
rounds seen by dr posada and with orders. pt with bowel movement large amount with yellow streaked stool noted. sleeps at intervals.
--- NOTE | 2017-01-04 12:00 | NUR ---
rounds pt was cleaned for liquid stool. keep patient dry and cleaned.
[2017-01-04 12:31] VITALS: BP 112/53; PULSE 71; RESP 18; TEMP 97.1; O2SAT 91
[2017-01-04] MEDS ORDERED: SIMETHICONE 40 MG/0.6 ML ML ONE (13:35)
[2017-01-04] MEDS ORDERED: MEPERIDINE HCL/PF 100 MG/ML AMP ONE (13:36)
[2017-01-04] MEDS ORDERED: MIDAZOLAM HCL 5 MG/5 ML VIAL ONE (13:36)
--- NOTE | 2017-01-04 14:00 | NUR ---
rounds asleep, awaiting for gi procedure. no sob noted.
--- NOTE | 2017-01-04 15:23 | NUR ---
rounds pt was picked up by bed for colonoscopy via bed. no sob noted.
--- NOTE | 2017-01-04 16:00 | NUR ---
rounds pt back from gi procedure and drowsy but arousable to stimuli. hob elevated and no acute distress noted. bed in lowposition and side rails up and locked. call light provided art bedside.
[2017-01-04 16:51] VITALS: BP 103/47; PULSE 88; RESP 19; TEMP 98.7; O2SAT 97
--- NOTE | 2017-01-04 18:08 | NUR ---
rounds seen by dr jose miguel ontiveros and with orders.
--- NOTE | 2017-01-04 19:15 | NUR ---
OPENING REPORTS RECEIVED REPORT AT BEDSIDE WITH DAY SHIFT NURSE. PATIENT SITTING UP IN BED EATING DINNER AND WATCHING TELEVISION. NO SIGNS OR SYMPTOMS OF DISTRESS NOTED AT THIS TIME. BED IN LOWEST POSITION, BED ALARM ON, CALL LIGHT WITHIN REACH, WILL CONTINUE TO MONITOR FREQUENTLY.
--- NOTE | 2017-01-04 20:35 | NUR ---
endorsed care to Lizandro BRAY
--- NOTE | 2017-01-04 20:37 | NUR ---
ASSUMED CARE ASSUMED CARE WITH PT. RECVD PT IN BED, RESTING.PT IS A/A/O X3. NO C/O PAIN AND NO SOB NOTED. BED IN LOW POSITION AND CALL LIGHT WITHIN REACH. WILL CONT TO MONITOR.
[2017-01-04 20:39] VITALS: BP 120/54; PULSE 88; RESP 16; TEMP 97.2; O2SAT 98
--- NOTE | 2017-01-04 20:46 | NUR ---
ADMIN NORCO PRN FOR PAIN ADMIN NORCO FOR BLE PAIN. WILL REASSESS AFTER 1HOUR.
--- NOTE | 2017-01-04 22:37 | NUR ---
SERENITY CARE REPOSITION ASSISTED WITH SERENITY CARE AND REPOSITION IN BED FOR SKIN CARE. NO C/O PAIN AND NO DISTRESS NOTED. CALL LIGHT WITHIN REACH, WILL CONT TO MONITOR.
[2017-01-04] MEDS: ATORVASTATIN 20 MG TABLET PO SCH (22:57)
--- NOTE | 2017-01-04 23:50 | NUR ---
ADMIN ULTRAM ADMIN ULTRAM PRN FOR BLE PAIN. WILL REASSESS AFTER 1 HOUR.
[2017-01-05 00:30] VITALS: BP 94/68; PULSE 91; RESP 18; TEMP 97.4; O2SAT 90
--- NOTE | 2017-01-05 01:30 | NUR ---
PARTIAL BED BATH PERFORMED PARTIAL BED BATH WITH RAJIV LOPEZ. NO S/S OF PAIN OR ANY DISTRESS NOTED. BED IN LOW POSITION, CALL LIGHT WITHIN REACH, WILL CONT TO MONITOR.
[2017-01-05] MEDS: MORPHINE 2 MG/ML INJ. SYRINGE IVP PRN (01:31)
--- NOTE | 2017-01-05 02:05 | NUR ---
ADMIN MORPHINE PRN FOR PAIN ADMIN MORPHINE PRN FOR BLE PAIN. WILL REASSESS AFTER 1HOUR.
[2017-01-05 03:14] VITALS: BP 120/53; PULSE 83; RESP 19; TEMP 97.6; O2SAT 97
--- NOTE | 2017-01-05 04:05 | NUR ---
ROUNDS PT IS RESTING COMFORTABLY IN BED @ THIS TIME. NO S/S OF PAIN AND NO DISTRESS NOTED. BED IN LOW POSITION WITH CALL LIGHT WITHIN REACH. WILL CONT TO MONITOR.
[2017-01-05] MEDS: traMADol HCL HCL 50 MG TABLET (ULTRAM) PO PRN (05:02)
--- NOTE | 2017-01-05 05:30 | NUR ---
ATTEMPTED TO CHANGE DRESSING BUT REFUSED PT REFUSED DRESSING CHANGE D/T PAIN. RESPECTED PT'S DECISION.
--- NOTE | 2017-01-05 06:51 | NUR ---
FINAL ROUNDS PT IS RESTING @ THIS TIME. NO S/S OF PAIN OR ANY DISTRESS NOTED. V/S ARE WNL. ALL NEEDS MET AND ANTICIPATED BY NOC NURSES. BED IN LOW POSITION WITH CALL SIDE RAILS UP X2 FOR SAFETY. CALL LIGHT WITHIN REACH, ENDORSED.
[2017-01-05 07:19] LABS: CALCIUM 9.1 mg/dL (8.4-11.0); CREATININE 4.03 mg/dL (0.55-1.30); POTASSIUM 3.7 mmol/L (3.5-5.1)
[2017-01-05 07:42] LABS: BASOPHILS # (AUTO) 0.1 K/uL (0.0-0.2); BASOPHILS % (AUTO) 0.6 % (0.0-2.0); EOSINOPHILS # (AUTO) 0.6 K/uL (0.0-0.4); HEMOGLOBIN 7.9 g/dL (12.0-16.0); LYMPHOCYTES # (AUTO) 1.2 K/uL (1.0-5.5); LYMPHOCYTES % (AUTO) 13.8 % (20.5-51.5); MEAN CORPUSCULAR HEMOGLOBIN 30 pg (27-31); MEAN CORPUSCULAR HGB CONC 32 % (32-36); MEAN CORPUSCULAR VOLUME 96 fL (79.0-98.0); MONOCYTES # (AUTO) 0.7 K/uL (0.0-1.0); MONOCYTES % (AUTO) 8.4 % (1.7-9.3); NEUTROPHILS # (AUTO) 6.3 K/uL (1.8-7.7); NEUTROPHILS % (AUTO) 70.2 % (40.0-70.0); PLATELET COUNT (AUTO) 391 K/uL (130-430); RED BLOOD CELL COUNT(AUTO) 2.62 MIL/uL (4.2-6.2); RED CELL DISTRIBUTION WIDTH 19.9 % (9.0-15.0); WHITE BLOOD COUNT (AUTO) 8.9 K/uL (4.8-10.8)
[2017-01-05 07:47] LABS: HEMATOCRIT 25.2 % (36-48)
[2017-01-05 08:00] VITALS: BP 143/59; PULSE 90; RESP 18; TEMP 98; O2SAT 96
--- NOTE | 2017-01-05 08:00 | NUR ---
INITIAL NOTE PT LAYING IN BED, RESTING, EASY TO AROUSE, NO S/S OF DISTRESS OR COMPLAINT OF PAIN, VSS, IV TO RAC PATENT SALINE LOCK, SAFETY MEASURE IN PLACE, BED IN LOW POSITION AND LOCKED, PT REORIENTED TO USE OF CALL LIGHT AND IT IS PLACED WITH IN REACH. WILL FOLLOW U P
[2017-01-05] MEDS: NEPHROVITE, (FOLIC ACID/VITAMIN B COMP W-C 1 TAB) PO SCH (08:42)
[2017-01-05] MEDS: FUROSEMIDE 40 MG TABLET PO SCH (08:42)
[2017-01-05] MEDS: GABAPENTIN 400 MG CAPSULE PO SCH ×2 (08:42→15:53)
[2017-01-05] MEDS: ASPIRIN 81 MG TABLET(ECOTRIN) PO SCH (08:42)
[2017-01-05] MEDS: PANTOPRAZOLE SODIUM 40 MG TAB PO SCH (08:42)
[2017-01-05] MEDS: METOPROLOL TARTRATE 50 MG TABLET PO SCH (08:43)
[2017-01-05] MEDS: amLODIPine BESYLATE 10 MG TABLET PO SCH (08:43)
[2017-01-05] MEDS ORDERED: HYDROCORTISONE ACETATE 1 SUPP (ANUSOL HC) RC SCH (09:00)
--- NOTE | 2017-01-05 10:00 | NUR ---
ROUNDS PT ASSISTED TO USE BEDPAN, VOIDED X2, PT CLEANED AND REPOSITIONED, SAFETY MEASURES IN PLACE, CALL LIGHT WITHIN REACH, BED IN RETURNED TO LOW POSITION, WILL CONTINUE TO MONITOR
--- NOTE | 2017-01-05 11:00 | NUR ---
DR DEONDRE ZHANG
[2017-01-05 12:08] VITALS: BP 118/62; PULSE 85; RESP 19; TEMP 97.2; O2SAT 93
--- NOTE | 2017-01-05 12:26 | NUR ---
DC PLANNING: RECEIVED DC ORDER FROM TO TRANSFER PT BACK TO [facility]. FAXED DC ORDER AND CLINICALS TO FAX# [phone]. TO F/U. Addendum: 01/05/17 at 1359 by Simi Christopher RN ACCEPTED BACK AT [facility] ROOM-203 C. PLS GIVE REPORT TO ASA TEL# [phone], ARRANGED BLS TRANSPORTATION FOR 16:30- 1700. PACKET AT THE NURSE'S STATION, LANDON BRAY AWARE.
--- NOTE | 2017-01-05 13:00 | NUR ---
ROUNDS PT LAYING IN BED RESTING, PT REPOSITIONED, TOLERATED WELL, NO S/S OF DISTRESS OR COMPLAINT OF PAIN, ALL NEEDS ATTENDED TO, SAFETY MEASURES IN PLACE, PT AWARE OF PENDING DISCHARGE, WILL FOLLOW UP
--- NOTE | 2017-01-05 15:00 | NUR ---
TRANSITIONAL PAPERWORK REVIEWED TRANSITIONAL PAPERWORK AND BELONGINGS LIST WITH PATIENT, PT VERBALIZED UNDERSTANDING AND AGREEMENT, PAPERWORK SIGNED.
[2017-01-05 15:16] VITALS: BP 118/62; PULSE 85; RESP 19; TEMP 97.2; O2SAT 93
[2017-01-05] MEDS: HYDROcodone/ACETAMIN 5-325 MG TAB (NORCO/ VICODIN) PO PRN (15:54)
--- NOTE | 2017-01-05 16:00 | NUR ---
WOUND CARE AND DISCHARGE PICTURES TAKEN. PT PREMEDICATED, PT TOLERATED WELL. BED RETURNED TO LOW POSITION, BED ALARM ON, SIDE RIALS UP X2, CALL LIGHT WITHIN REACH, WILL CONTINUE TO MONITOR
[2017-01-05 16:07] VITALS: BP 100/51; PULSE 73; RESP 18; TEMP 96.9; O2SAT 99
--- NOTE | 2017-01-05 18:17 | NUR ---
PT TRANSFERRED Report given to JAYDEN adams [facility]. Transfer packet with Transfer Orders and Medication Reconciliation form given to EMT with report. Exit care provided. [facility] ID band removed, replaced with ID band with pt's name and . IV catheter removed, intact and dressing applied, no active bleeding. All belongings sent with patient. Patient left floor via gurney escorted by EMT in no distress.
--- NOTE | 2017-01-06 10:04 | NUR ---
Returned call to Jessica at [facility] [phone] who stated patient been on HD and was made aware of patient discharge to [facility]. Jessica will follow up with SNF.
== END 2017-01-05 18:15 | DRG 299 ==
LOC: SED 22:52 → SMU 23:00
PROVIDERS: ADMIT General Practice; ATTEND General Practice
PROC: 5A1D00Z (ICD-10-PCS; 2017-01-03)
PROC: 0DBN8ZX Excision of Sigmoid Colon, Via Natural or Artificial Opening Endoscopic, Diagnostic (ICD-10-PCS; 2017-01-04)
PROC: 0DBP8ZX Excision of Rectum, Via Natural or Artificial Opening Endoscopic, Diagnostic (ICD-10-PCS; 2017-01-04)
PROC: 0DBK8ZX Excision of Ascending Colon, Via Natural or Artificial Opening Endoscopic, Diagnostic (ICD-10-PCS; principal; 2017-01-04 14:45)
DX: E11.52 Type 2 diabetes mellitus with diabetic peripheral angiopathy with gangrene (principal); N18.6 End stage renal disease; K62.6 Ulcer of anus and rectum; N25.81 Secondary hyperparathyroidism of renal origin; I13.2 Hypertensive heart and chronic kidney disease with heart failure and with stage 5 chronic kidney disease, or end stage renal disease; Z68.41 Body mass index [BMI] 40.0-44.9, adult; D12.2 Benign neoplasm of ascending colon; K64.8 Other hemorrhoids; D12.5 Benign neoplasm of sigmoid colon; K56.41 Fecal impaction; E11.621 Type 2 diabetes mellitus with foot ulcer; K21.9 Gastro-esophageal reflux disease without esophagitis; J44.9 Chronic obstructive pulmonary disease, unspecified; E11.22 Type 2 diabetes mellitus with diabetic chronic kidney disease; D63.8 Anemia in other chronic diseases classified elsewhere; E66.9 Obesity, unspecified; I50.9 Heart failure, unspecified; E11.42 Type 2 diabetes mellitus with diabetic polyneuropathy; E11.319 Type 2 diabetes mellitus with unspecified diabetic retinopathy without macular edema; Z99.2 Dependence on renal dialysis; Z88.0 Allergy status to penicillin; Z88.2 Allergy status to sulfonamides; Z88.8 Allergy status to other drugs, medicaments and biological substances; Z91.040 Latex allergy status; Z89.422 Acquired absence of other left toe(s)
CPT/HCPCS: 36415; 36600; 45385; 71010; 74000-TC; 80048; 80053; 82803-TC; 82962; 83605; 83735-TC; 83880; 84100-TC; 84484; 85025; 85610-TC; 85730-TC; 87081; 88305; 90935; 93005; 93923; 99285; J0885; J1815; J2175; J2250; J2270; J7030; J7042

== ENCOUNTER 2017-02-28 23:30 | Inpatient (IN) | payer BC, MEDICAID ==
[~2017-02-28] VITALS: Ht 154.9 cm; Wt 96.6 kg
[~2017-02-28 23:30] MED LIST: ALBU2.5V7 INH; AMIN30LI2 PO; AMLO10TA88 PO; ASPI-1063 PO; CALC667T5 PO; DIPH25CA83 PO; FOLI-43 PO; FOLI0.8T2 PO; FURO40TA5 PO; GABA-533 PO; HYDR-1189 PO; INSU100V11 SQ; INSU100V32 SUBCUT; LIP20 PO; METO-442 PO; NOR10 PO; TRAM50TA92 PO
--- NOTE | 2017-02-28 23:32 | NUR ---
Patient to ER bed 2 to gown for evaluation. Side rails up. Report given to My RN.
[2017-02-28 23:33] VITALS: BP 133/68; PULSE 112; RESP 20; TEMP 101; O2SAT 94
[2017-02-28] MEDS ORDERED: ACETAMINOPHEN 500 MG TABLET PO ONE (23:45)
--- NOTE | 2017-02-28 23:45 | NUR ---
ER Dr. Harrington at bedside examining patient.
--- NOTE | 2017-02-28 23:45 | NUR ---
Pt from [facility]Ox[facility], c/o clotted left AV shunt. Pt denies chest pain, SOB, N/V/D. aware. Safety maintained. Continue to monitor.
[2017-03-01] MEDS ORDERED: VANCOMYCIN HCL 750 MG in NS 250 ML IV ONE (00:30)
[2017-03-01 00:40] LABS: HEMOGLOBIN 10.2 g/dL (12.0-16.0); MEAN CORPUSCULAR HEMOGLOBIN 30 pg (27-31); MEAN CORPUSCULAR HGB CONC 32 % (32-36); MEAN CORPUSCULAR VOLUME 93 fL (79.0-98.0); PLATELET COUNT (AUTO) 369 K/uL (130-430); RED BLOOD CELL COUNT(AUTO) 3.43 MIL/uL (4.2-6.2); RED CELL DISTRIBUTION WIDTH 18.7 % (9.0-15.0)
[2017-03-01 00:41] LABS: CALCIUM 9.2 mg/dL (8.4-11.0); CREATININE 4.58 mg/dL (0.55-1.30); POTASSIUM 3.4 mmol/L (3.5-5.1)
[2017-03-01 00:44] LABS: PROTHROMBIN TIME 10.9 SECS (9.5-12.5)
[2017-03-01 00:47] LABS: TOTAL BILIRUBIN 0.8 mg/dL (0.0-1.0); TOTAL PROTEIN, SERUM 5.5 g/dL (6.4-8.3)
[2017-03-01] MEDS ORDERED: HEPA500014 SUBCUT (00:47)
[2017-03-01] MEDS ORDERED: ACET325T53 PO (00:47)
[2017-03-01] MEDS ORDERED: VANCOMYCIN HCL 1000 MG/VIAL IV ONE (00:54)
[2017-03-01 00:56] LABS: WHITE BLOOD COUNT (AUTO) 13.1 K/uL (4.8-10.8)
[2017-03-01] MEDS ORDERED: DOCU250C PO (00:58)
[2017-03-01] MEDS ORDERED: PRO40 PO (00:58)
[2017-03-01] MEDS ORDERED: SIME80TA PO (00:58)
[2017-03-01] MEDS ORDERED: NACL 0.9% 1,000 ML IV SCH ×2 (01:15→05:15)
--- NOTE | 2017-03-01 01:25 | NUR ---
Patient will be admitted to care of ASA Rodriguez. Admitted to Telemetry unit. Will go to room 101A. Belongings list completed. Summary report printed. Report will be given at bedside.
--- NOTE | 2017-03-01 01:36 | NUR ---
ADMIT NOTE Received pt from ER to the floor with a diagnosis of clotting of left a-v shunt and ESRD. Admission process initiated. patient oriented to pain management, safety and call light-teach back done.
[2017-03-01 01:52] LABS: ATYPICAL LYMPHOCYTES % 0 % (0-0); BAND % (MANUAL) 8 % (0-6); BASOPHILS % (MANUAL) 0 % (0-2); EOSINOPHILS % (MANUAL) 0 % (0-7); LYMPHOCYTES % (MANUAL) 11 % (20-46); MONOCYTES % (MANUAL) 0 % (0-11)
[2017-03-01 01:57] VITALS: BP 112/57; PULSE 94; RESP 18; TEMP 98.4; O2SAT 99
--- NOTE | 2017-03-01 02:00 | NUR ---
INITIAL NOTES: PT IS ALERT AND ORIENTED;NOT IN ANY ACUTE DISTRESS; ASSESSMENT DONE , PICTURES TAKEN AND CLEANED AND APPLIED DRESSING TO THE LEFT BKA, R HEEL , R BUTTOCKS AND SACRUM . PT IS COMFORTABLE ; NOT IN ANY ACUTE DISTRESS; WILL CONTINUE TO MONITOR; BED IN LOW AND LOCK POSITION , CALL GLORIA IN REACH ; INSTRUCTED PT TO CALL FOR ANY ASSISTANCE .
[2017-03-01 02:22] VITALS: BP 121/59; PULSE 82; RESP 20; TEMP 98.4; O2SAT 90
[2017-03-01 03:39] VITALS: BP 118/55; PULSE 84; RESP 20; TEMP 97.4; O2SAT 100
--- NOTE | 2017-03-01 04:00 | NUR ---
RN ROUNDS: PT IS COMFORTABLE ; SLEEPING, NOT IN ANY ACUTE DISTRESS; WILL CONTINUE TO MONITOR.
--- NOTE | 2017-03-01 05:47 | NUR ---
RN ROUNDS: PT IS SLEEPING , NOT IN ANY ACUTE DISTRESS; WILL CONTINUE TO MONITOR.
--- NOTE | 2017-03-01 06:52 | NUR ---
CLOSING NOTES: PT IS COMFORTABLE, SLEEPING ;NOT IN ANY ACUTE DISTRESS; NO SIGNIFICANT CHANGES IN THE CONDITION ;WILL CONTINUE TO MONITOR AND WILL ENDORSE TO NEXT SHIFT NURSE
--- NOTE | 2017-03-01 07:40 | NUR ---
PATIENT IS RESTING, SR ON MONITOR. NPO AT THIS TIME. AV ON SHUNT ON THE LEFT ARM. IV ON RIGHT THUMB, #22. CALL LIGHT IN PLACE, BED AT LOWEST POSITION, WILL CONTINUE TO MONITOR.
--- NOTE | 2017-03-01 08:04 | NUR ---
Nutrition Update Ar Scale 14 noted. Pt admitted for: Clotting Left Arteriavenous Shunt Diet: NPO BMI: 40.2 kg/m2. RD to follow per nutrition care standards.
[2017-03-01] MEDS ORDERED: DIPHENHYDRAMINE HCL 25 MG CAPSULE PO SCH (08:15)
[2017-03-01] MEDS ORDERED: DOCUSATE SODIUM 250 MG CAPSULE PO PRN (08:15)
[2017-03-01] MEDS ORDERED: ACETAMINOPHEN 325 MG TABLET PO PRN (08:15)
[2017-03-01] MEDS: METOPROLOL TARTRATE 50 MG TABLET PO SCH ×2 (08:39→21:00)
[2017-03-01] MEDS: GABAPENTIN 400 MG CAPSULE PO SCH ×3 (08:39→23:12)
[2017-03-01] MEDS: NEPHROVITE, (FOLIC ACID/VITAMIN B COMP W-C 1 TAB) PO SCH (08:39)
[2017-03-01] MEDS: FUROSEMIDE 40 MG TABLET PO SCH (08:40)
[2017-03-01] MEDS: amLODIPine BESYLATE 10 MG TABLET PO SCH (08:40)
[2017-03-01] MEDS: PANTOPRAZOLE SODIUM 40 MG TAB PO SCH (08:40)
[2017-03-01] MEDS: ASPIRIN 81 MG TABLET(ECOTRIN) PO SCH (08:40)
[2017-03-01] MEDS: DOCUSATE SODIUM 100 MG CAPSULE PO SCH ×2 (08:41→23:12)
[2017-03-01] MEDS: HEPARIN SODIUM,PORCINE 5000 UNITS/ML VIAL SUBCUT SCH ×2 (08:42→23:14)
[2017-03-01] MEDS: FOLIC ACID 1 MG TABLET PO SCH (08:45)
--- NOTE | 2017-03-01 09:10 | NUR ---
CONSULT: DR CROW Consult was called, sheron Pool re av shunt manlfunction
--- NOTE | 2017-03-01 09:13 | NUR ---
CONSULT: DR TREVINO Consult was called, sheron Pool re esrd
[2017-03-01] MEDS ORDERED: LIDOCAINE/EPI 1% 1:100000 20 ML VIAL INJ ONE (11:15)
[2017-03-01] MEDS ORDERED: KETAMINE HCL 500 MG/10 ML VIAL IVP ONE (11:15)
[2017-03-01] MEDS ORDERED: NS 1000 ML BAG IV ONE (11:15)
[2017-03-01] MEDS ORDERED: MIDAZOLAM HCL 5 MG/5 ML VIAL IVP ONE (11:15)
--- NOTE | 2017-03-01 11:20 | NUR ---
PATIENT TO OR FOR REVISION OF LEFT AV SHUNT. NO SIGNS OF DISTRESS NOTED DURING TRANSPORT.
[2017-03-01 11:25] VITALS: BP 135/52; PULSE 72; RESP 19; TEMP 98.6; O2SAT 100
[2017-03-01] MEDS ORDERED: ASPIRIN 325 MG TABLET (ECOTRIN) PO ONE (12:45)
[2017-03-01] MEDS ORDERED: DIPHENHYDRAMINE HCL 25 MG CAPSULE PO PRN (13:00)
[2017-03-01 13:24] VITALS: BP 129/65; PULSE 77; RESP 19; TEMP 97; O2SAT 95
--- NOTE | 2017-03-01 13:45 | NUR ---
PATIENT HAS RETURNED FROM OR. NO SIGNS OF DISTRESS NOTED.
--- NOTE | 2017-03-01 16:00 | NUR ---
Patient is sleeping, breathing even and unlabored. Refused 1500 meds.
--- NOTE | 2017-03-01 18:18 | NUR ---
Patient is eating her dinner, no signs of distress noted. Will continue to monitor.
--- NOTE | 2017-03-01 19:50 | NUR ---
NOTES; SEEN PT SITTING UP IN BED, NO ACUTE DISTRESS; VITAL SIGNS STABLE, AFEBRILE. ABLE TO MAKE NEEDS KNOWN. LEFT BKA, R HEEL , R BUTTOCKS AND SACRUM WITH DRESSING CLEAN,DRY, AND INTACT. PT APPEARED TO BE COMFORTABLE ; AV SHUNT TO THE LEFT UPPER ARM WITH POSITIVE BRUIT AND THRILL. DIALYSIS NURSE AT BEDSIDE SETTING UP DIALYSIS MACHINE TO DIALYZE PT. IV SALINE LOCK TO THE RT UPPER ARM, GAUGE 24,PATENT. PT DENIES ANY PAIN AT THIS TIME. INSTRUCTED PT ON THE USE OF CALL LIGHT. PT VERBALIZED UNDERSTANDING. BED LOCKED AND IN LOW POSITION, SIDE RAILS UP X3, BED ALARM ON. CALL LIGHT WITHIN REACH. CONTACT ISOLATION PRECAUTION IN PROGRESS. WILL CONTINUE TO MONITOR; BED IN LOW AND LOCK POSITION , CALL GLORIA IN REACH ; INSTRUCTED PT TO CALL FOR ANY NEED TO ASSIST. PT VERBALIZED UNDERSTANDING.
[2017-03-01 19:55] VITALS: BP 127/48; PULSE 81; RESP 20; TEMP 97; O2SAT 96
--- NOTE | 2017-03-01 22:00 | NUR ---
NOTES; IN BED WATCHING TV. NO APPARENT DISTRESS NOTED. DENIES ANY PAIN AT THIS TIME.
[2017-03-01] MEDS: ATORVASTATIN 20 MG TABLET PO SCH (23:12)
--- NOTE | 2017-03-01 23:15 | NUR ---
Notes; Dialysis completed, 2000ml out put. BP 107/67, hr 77. Lopressor held due to low BP. All other Po medication administered at this time due to ongoing dialysis. will continue to monitor.
[2017-03-01] MEDS: HYDROcodone/ACETAMIN 5-325 MG TAB (NORCO/ VICODIN) PO PRN (23:54)
--- NOTE | 2017-03-02 00:10 | NUR ---
NOTES; LEFT BKA, R HEEL , R BUTTOCKS AND SACRUM WOUND CHANGED. PT MEDICATED PRIO TO DRESSING CHANGE.
[2017-03-02 01:02] VITALS: BP 133/58; PULSE 80; RESP 16; TEMP 97.7; O2SAT 97
--- NOTE | 2017-03-02 01:30 | NUR ---
NOTES; APPEARED TO BE SLEEPING, EYES CLOSED, RESPIRATION EVEN AND UNLABORED. LEFT UPPER ARM WITH MINIMAL OLD BLOOD IN 2X2 DRESSING. SAFETY MEASURES IN PROGRESS. WILL CONTINUE TO MONITOR.
--- NOTE | 2017-03-02 03:30 | NUR ---
NOTES; APPEARED TO BE SLEEPING, EYES CLOSED, RESPIRATION EVEN AND UNLABORED. LEFT UPPER ARM WITH MINIMAL OLD BLOOD IN 2X2 DRESSING UNCHANGED. SAFETY MEASURES IN PROGRESS. WILL CONTINUE TO MONITOR.
[2017-03-02] MEDS: MORPHINE 2 MG/ML INJ. SYRINGE IVP PRN ×2 (04:45→22:24)
[2017-03-02 05:00] VITALS: BP 139/60; PULSE 84; RESP 16; TEMP 98; O2SAT 92
--- NOTE | 2017-03-02 07:21 | NUR ---
NOTES; NO SIGNIFICANT CHANGES THROUGH THE NIGHT. NO FURTHER BLEEDING SINCE ASSESSMENT. DENIES ANY PAIN AT THIS TIME. ALL NEEDS ATTENDED. SAFETY MEASURES MAINTAINED.
--- NOTE | 2017-03-02 07:30 | NUR ---
AM ROUNDS PT A/OX4, DENIES PAIN AT THIS TIME...HL TO PATTI FLUSHES WELL. PT WITH SHUNT TO LEFT UPPER ARM, DRESSED. 2X2 DRESSING WITH DRY SEROSANGUINEOUS BLOOD NOTED...PT IS S/P RYAN (01/29/17) WITH STITCHES AND DRESSED, PT ON 2L O2, DRESSING TO RIGHT HEEL C/D/I, PT ON AIR MATTRESS...CALL LIGHT/PHONE W/IN REACH...WILL CONT TO MONITOR
--- NOTE | 2017-03-02 10:01 | NUR ---
DR CROW AT BEDSIDE
[2017-03-02] MEDS: NEPHROVITE, (FOLIC ACID/VITAMIN B COMP W-C 1 TAB) PO SCH (10:28)
[2017-03-02] MEDS: GABAPENTIN 400 MG CAPSULE PO SCH ×3 (10:28→20:30)
[2017-03-02] MEDS: METOPROLOL TARTRATE 50 MG TABLET PO SCH ×2 (10:29→20:30)
[2017-03-02] MEDS: PANTOPRAZOLE SODIUM 40 MG TAB PO SCH (10:30)
[2017-03-02] MEDS: DOCUSATE SODIUM 100 MG CAPSULE PO SCH ×2 (10:30→20:30)
[2017-03-02] MEDS: ASPIRIN 81 MG TABLET(ECOTRIN) PO SCH (10:30)
[2017-03-02] MEDS: HEPARIN SODIUM,PORCINE 5000 UNITS/ML VIAL SUBCUT SCH (10:32)
[2017-03-02] MEDS: FUROSEMIDE 40 MG TABLET PO SCH (10:32)
[2017-03-02] MEDS: FOLIC ACID 1 MG TABLET PO SCH (10:32)
[2017-03-02] MEDS: amLODIPine BESYLATE 10 MG TABLET PO SCH (10:33)
--- NOTE | 2017-03-02 11:00 | NUR ---
PER DR TRISTIN CARLOS TO CHANGED DRESSING TO SHUNT AREA
[2017-03-02 12:30] VITALS: BP 117/51; PULSE 91; RESP 18; TEMP 97.9; O2SAT 94
--- NOTE | 2017-03-02 12:31 | NUR ---
BLOOD SUGAR: 365...NO ACCU-CK OR S/S ORDERED WILL INFORM
[2017-03-02 12:55] LABS: BASOPHILS % (AUTO) 0.1 % (0.0-2.0); HEMATOCRIT 27.3 % (36-48); HEMOGLOBIN 8.9 g/dL (12.0-16.0); LYMPHOCYTES # (AUTO) 1.2 K/uL (1.0-5.5); LYMPHOCYTES % (AUTO) 12.3 % (20.5-51.5); MEAN CORPUSCULAR HEMOGLOBIN 30 pg (27-31); MEAN CORPUSCULAR HGB CONC 33 % (32-36); MEAN CORPUSCULAR VOLUME 93 fL (79.0-98.0); MONOCYTES # (AUTO) 0.4 K/uL (0.0-1.0); MONOCYTES % (AUTO) 4.3 % (1.7-9.3); NEUTROPHILS # (AUTO) 8.3 K/uL (1.8-7.7); PLATELET COUNT (AUTO) 348 K/uL (130-430); RED BLOOD CELL COUNT(AUTO) 2.93 MIL/uL (4.2-6.2); RED CELL DISTRIBUTION WIDTH 18.8 % (9.0-15.0); WHITE BLOOD COUNT (AUTO) 9.9 K/uL (4.8-10.8)
--- NOTE | 2017-03-02 12:55 | NUR ---
PT ON BEDPAN..
[2017-03-02 13:00] LABS: CALCIUM 8.5 mg/dL (8.4-11.0); CREATININE 3.59 mg/dL (0.55-1.30); PHOSPHORUS 2.7 mg/dL (2.7-4.5); POTASSIUM 3.2 mmol/L (3.5-5.1)
[2017-03-02] MEDS ORDERED: INSULIN REGULAR, HUMAN 100 UNITS/ML, 10 ML VIAL (novoLIN R) SUBCUT PRN (13:00)
[2017-03-02] MEDS ORDERED: DEXTROSE 50%-WATER 50 ML DISP.SYRIN IVP PRN ×2 (13:00)
[2017-03-02] MEDS ORDERED: GLUCOSE 15 GM GEL (in 37.5 GM TUBE) PO PRN ×2 (13:00)
[2017-03-02 13:43] LABS: NEUTROPHILS % (AUTO) 83.3 % (40.0-70.0)
[2017-03-02] MEDS: CALCIUM ACETATE 667 MG CAP PO SCH ×2 (14:23→17:54)
[2017-03-02] MEDS ORDERED: IPRATROPIUM/ALBUTEROL SULFATE 3 ML AMPUL.NEB INH PRN (15:30)
[2017-03-02 16:00] VITALS: BP 127/60; PULSE 86; RESP 17; TEMP 98.4; O2SAT 96
--- NOTE | 2017-03-02 16:49 | NUR ---
WOUND CARE/DRESSING CHANGE TO LEFT STUMP AND TO SHUNT STUMP CLEANSED WITH NS, PAT DRIED, FOAM DRESSING APPLIED AND SECURED WITH GAUZE.. SHUNT DRESSING REMOVED, NEW 2X2 DRESSING APPLIED, COVERED WITH OPTI-SITE...PT TOLERATED WELL
[2017-03-02] MEDS ORDERED: INSULIN REGULAR, HUMAN 100 UNITS/ML, 10 ML VIAL SUBCUT SCH (17:00)
[2017-03-02 17:40] VITALS: BP 127/60; PULSE 86
--- NOTE | 2017-03-02 19:15 | NUR ---
OPENING NOTES REPORT GIVEN AT BEDSIDE. PATIENT AOX4, PT IS SITTING UP IN BED WATCHING TELEVISION. PT IN GOOD SPIRITS AND DENIES PAIN. WOUND DRESSINGS ARE INTACT AND DRY. BRUIT AND THRILL STRONG IN SHUNT, LUNGS THROUGHOUT HEARD WHEEZE. IV FLUSHING AND PATENT WITH NO S/S OF ACUTE DISTRESS NOTED. FALL PRECAUTIONS IN PLACE, CALL LIGHT WITHIN REACH.
[2017-03-02] MEDS: BUDESONIDE 0.5 MG/2 ML AMPUL.NEB INH SCH (20:07)
[2017-03-02] MEDS: IPRATROPIUM/ALBUTEROL SULFATE 3 ML AMPUL.NEB INH SCH (20:07)
[2017-03-02] MEDS: ATORVASTATIN 20 MG TABLET PO SCH (20:31)
[2017-03-02] MEDS: INSULIN REGULAR, HUMAN 100 UNITS/ML, 10 ML VIAL (novoLIN R) SUBCUT PRN (20:45)
--- NOTE | 2017-03-02 20:45 | NUR ---
ACCUCHECK BLOOD SUGAR CHECKED AT 331, COVERED WITH SLIDING SCALE INSULIN. PATIENT SKIN COOL AND DRY TO TOUCH. NO S/S OF HYPERGLYCEMIA NOTED. WILL CONTINUE TO MONITOR.
--- NOTE | 2017-03-02 22:45 | NUR ---
ROUNDS PT IS WATCHING TELEVISION AND IN GOOD SPIRITS. RESPIRATIONS ARE EVEN AND UNLABORED. IV FLUSHING AND PATENT WITH NO S/S OF ACUTE DISTRESS NOTED. FALL PRECAUTIONS IN PLACE, CALL LIGHT WITHIN REACH.
--- NOTE | 2017-03-02 23:30 | NUR ---
REPOSITIONED PATIENT., NO CHANGE, CALL LIGHT WITHIN REACH.
[2017-03-03 01:24] VITALS: BP 124/54; PULSE 78; RESP 15; TEMP 97.5; O2SAT 97
[2017-03-03] MEDS: IPRATROPIUM/ALBUTEROL SULFATE 3 ML AMPUL.NEB INH SCH ×4 (01:26→19:00)
--- NOTE | 2017-03-03 01:30 | NUR ---
ROUND PT SITTING UP IN BED WATCHING TELEVISION AND PLAYING WITH HER CELL PHONE. PT DENIES PAIN. WOUND DRESSINGS ARE INTACT AND DRY, ELEVATED. NO S/S OF ACUTE DISTRESS NOTED. FALL PRECAUTIONS IN PLACE, CALL LIGHT WITHIN REACH.
--- NOTE | 2017-03-03 03:30 | NUR ---
ROUND PT SITTING UP IN BED WATCHING TELEVISION AND PLAYING WITH HER CELL PHONE. PT DENIES PAIN. WOUND DRESSINGS ARE INTACT AND DRY, ELEVATED. NO S/S OF ACUTE DISTRESS NOTED. PATIENT DOES NOT NEED ANYTHING. FALL PRECAUTIONS IN PLACE, CALL LIGHT WITHIN REACH.
[2017-03-03 04:45] VITALS: BP 122/44; PULSE 81; RESP 15; TEMP 97.7; O2SAT 100
[2017-03-03] MEDS: INSULIN REGULAR, HUMAN 100 UNITS/ML, 10 ML VIAL (novoLIN R) SUBCUT PRN ×4 (05:38→22:59)
--- NOTE | 2017-03-03 05:49 | NUR ---
ACCUCHECK PATIENTS BLOOD SUGAR IS 186 AND REQUIRES COVERAGE. PATIENT IS RESTING COMFORTABLY, WATCHING TELEVISION. NO ACUTE S/S OF DISTRESS. FALL PRECAUTIONS IN PLACE, CALL LIGHT WITHIN REACH. WILL CONTINUE TO MONITOR.
--- NOTE | 2017-03-03 06:26 | NUR ---
CLOSING NOTES PATIENT AOX4, PT IS SITTING UP IN BED WATCHING TELEVISION. PT IS IN PAIN. THE DRESSINGS ON HER WOUNDS ARE INTACT AND DRY. BRUIT AND THRILL STRONG IN SHUNT, LUNGS THROUGHOUT HEARD WHEEZE. IV FLUSHING AND PATENT WITH NO S/S OF ACUTE DISTRESS NOTED. FALL PRECAUTIONS IN PLACE, CALL LIGHT WITHIN REACH. WILL ENDORSE CARE TO DAYSHIFT NURSE.
[2017-03-03] MEDS: HYDROcodone/ACETAMIN 5-325 MG TAB (NORCO/ VICODIN) PO PRN (06:41)
[2017-03-03 07:27] LABS: BASOPHILS % (AUTO) 0.1 % (0.0-2.0); EOSINOPHILS % (AUTO) 0.4 % (0.0-4.0); HEMATOCRIT 25.6 % (36-48); HEMOGLOBIN 8.2 g/dL (12.0-16.0); LYMPHOCYTES # (AUTO) 1.5 K/uL (1.0-5.5); LYMPHOCYTES % (AUTO) 20.4 % (20.5-51.5); MEAN CORPUSCULAR HEMOGLOBIN 29 pg (27-31); MEAN CORPUSCULAR HGB CONC 32 % (32-36); MEAN CORPUSCULAR VOLUME 92 fL (79.0-98.0); MONOCYTES # (AUTO) 0.5 K/uL (0.0-1.0); MONOCYTES % (AUTO) 6.6 % (1.7-9.3); NEUTROPHILS # (AUTO) 5.1 K/uL (1.8-7.7); NEUTROPHILS % (AUTO) 72.5 % (40.0-70.0); PLATELET COUNT (AUTO) 337 K/uL (130-430); RED BLOOD CELL COUNT(AUTO) 2.79 MIL/uL (4.2-6.2); RED CELL DISTRIBUTION WIDTH 18.6 % (9.0-15.0); WHITE BLOOD COUNT (AUTO) 7.1 K/uL (4.8-10.8)
[2017-03-03 07:34] LABS: CALCIUM 8.4 mg/dL (8.4-11.0); CREATININE 4.19 mg/dL (0.55-1.30); PHOSPHORUS 2.8 mg/dL (2.7-4.5)
--- NOTE | 2017-03-03 08:00 | NUR ---
AM Initial Notes Pt aaox3 with no complaints of pain or discomfort at this time. No sob, difficulty breathing or distress noted. O2 via nasal canula @ 2L in place. IV to right upper arm #24 saline locked patent and flushing. Left AV shunt with bruit and thrill present. Left BKA covered with dressing. Dressing appears dry, clean and intact. No drainage noted. Wounds to sacrum and left heel noted. Pt on low air loss mattress. Reposition and kept comfortable. Isolation, Fall and safety risk precaution enforced. Bed alarm armed. Encouraged to call for assistance. Call light within reach. Will monitor.
[2017-03-03 08:46] VITALS: BP 145/54; PULSE 87; RESP 18; TEMP 97.6; O2SAT 100
[2017-03-03] MEDS: FUROSEMIDE 40 MG TABLET PO SCH (09:00)
[2017-03-03] MEDS: amLODIPine BESYLATE 10 MG TABLET PO SCH (09:00)
[2017-03-03] MEDS: METOPROLOL TARTRATE 50 MG TABLET PO SCH ×2 (09:00→22:51)
--- NOTE | 2017-03-03 10:00 | NUR ---
Medications 0900 scheduled blood pleasure medications held due to possible Hemodialysis. Waiting for [facility] for orders.
--- NOTE | 2017-03-03 10:00 | NUR ---
Dr. Panchito MARY doing rounds. Plan of care discussed.
[2017-03-03] MEDS ORDERED: POTASSIUM CHLORIDE 20 MEQ/PKT PACKET PO ONE (10:15)
[2017-03-03] MEDS: FOLIC ACID 1 MG TABLET PO SCH (10:23)
[2017-03-03] MEDS: GABAPENTIN 400 MG CAPSULE PO SCH ×3 (10:23→22:51)
[2017-03-03] MEDS: DOCUSATE SODIUM 100 MG CAPSULE PO SCH ×2 (10:23→22:51)
[2017-03-03] MEDS: NEPHROVITE, (FOLIC ACID/VITAMIN B COMP W-C 1 TAB) PO SCH (10:23)
[2017-03-03] MEDS: ASPIRIN 81 MG TABLET(ECOTRIN) PO SCH (10:23)
[2017-03-03] MEDS: PANTOPRAZOLE SODIUM 40 MG TAB PO SCH (10:23)
[2017-03-03] MEDS: CALCIUM ACETATE 667 MG CAP PO SCH ×3 (10:27→18:00)
--- NOTE | 2017-03-03 10:30 | NUR ---
Rounds Pt asleep. No signs of facial grimacing for pain or discomfort. No distress noted. Will monitor.
[2017-03-03 11:25] VITALS: BP 129/56; PULSE 77; RESP 19; TEMP 96.6; O2SAT 96
[2017-03-03 11:29] VITALS: Ht 154.9 cm; Wt 96.6 kg
[2017-03-03] MEDS: HYDROcodone/ACETAMIN 7.5-325 MG TAB PO PRN (12:24)
--- NOTE | 2017-03-03 12:32 | NUR ---
Pain Pt complaints of left leg pain 03/22. Medicated with Sturgeon 7-325mg 1 tablet. Fall and safety precautions enforced. Encouraged to call for assistance. Will monitor.
[2017-03-03] MEDS: BUDESONIDE 0.5 MG/2 ML AMPUL.NEB INH SCH ×2 (13:43→20:15)
--- NOTE | 2017-03-03 14:44 | NUR ---
DC PLANNING: S/W ZHANE Hanson to f/u on HD order with the nephro, no order today. The pt. HD is on MWF.
--- NOTE | 2017-03-03 15:00 | NUR ---
Rounds Pt awake resting in bed watching tv. No complaints of pain or discomfort at this time. No distress noted. Repositioned and kept comfortable. Encouraged to call for assistance. Call light within reach. Will monitor.
[2017-03-03 15:26] VITALS: BP 119/50; PULSE 93; RESP 19; TEMP 97; O2SAT 100
--- NOTE | 2017-03-03 17:05 | NUR ---
Rounds Pt awake with no complaints of pain or discomfort. No distress noted. Blood sugar monitor 218. Insulin sliding scale administered. Repositioned and kept comfortable. Encouraged to call for assistance. Call light within reach.
[2017-03-03 17:45] LABS: CALCIUM 8.8 mg/dL (8.4-11.0); CREATININE 4.65 mg/dL (0.55-1.30); POTASSIUM 3.8 mmol/L (3.5-5.1)
--- NOTE | 2017-03-03 18:45 | NUR ---
Closing notes Pt asleep. No significant changes noted. Call light within reach. Will endorse care to incoming nurse.
--- NOTE | 2017-03-03 19:25 | NUR ---
initial nursing notes: Patient awake in bed getting ready for dialysis. Patient has an IV access on the RUE. Patient denies of having pain.
[2017-03-03 19:42] VITALS: BP 137/61; PULSE 92; RESP 17; TEMP 97.1; O2SAT 100
--- NOTE | 2017-03-03 21:25 | NUR ---
nursing rounds: Patient is connected to the dialysis machine. Patient watching television.
[2017-03-03] MEDS: ATORVASTATIN 20 MG TABLET PO SCH (22:51)
[2017-03-03] MEDS: MORPHINE 2 MG/ML INJ. SYRINGE IVP PRN (23:13)
--- NOTE | 2017-03-03 23:25 | NUR ---
nursing rounds: Patient was dialysis completed, 2 liters out. Patient requested for evening medications to be held until tomorrow morning preferably after she had breakfast. Patient stated that she feels tired and would like to rest. Patient asked for pain medication through IV. IV pain medication provided.
[2017-03-04 00:10] VITALS: BP 119/45; PULSE 83; RESP 18; TEMP 97.2; O2SAT 98
[2017-03-04] MEDS: IPRATROPIUM/ALBUTEROL SULFATE 3 ML AMPUL.NEB INH SCH ×4 (01:00→19:00)
--- NOTE | 2017-03-04 01:25 | NUR ---
nursing rounds: Patient asleep in bed. Patient has no shortness of breath.
--- NOTE | 2017-03-04 03:25 | NUR ---
nursing rounds: Patient sleeping in bed. Patient's breathing pattern is regular and unlabored.
[2017-03-04 04:00] VITALS: BP 165/54; PULSE 89; RESP 20; TEMP 98.5; O2SAT 100
[2017-03-04] MEDS: HYDROcodone/ACETAMIN 7.5-325 MG TAB PO PRN ×2 (04:00→16:52)
--- NOTE | 2017-03-04 05:25 | NUR ---
nursing rounds: Patient received pain medication for calf pain. Medication was effective. Patient is currently resting in bed.
[2017-03-04 06:25] LABS: BASOPHILS % (AUTO) 0.1 % (0.0-2.0); EOSINOPHILS # (AUTO) 0.1 K/uL (0.0-0.4); EOSINOPHILS % (AUTO) 1.3 % (0.0-4.0); HEMATOCRIT 27.2 % (36-48); HEMOGLOBIN 8.6 g/dL (12.0-16.0); LYMPHOCYTES # (AUTO) 0.9 K/uL (1.0-5.5); LYMPHOCYTES % (AUTO) 12.1 % (20.5-51.5); MEAN CORPUSCULAR HEMOGLOBIN 29 pg (27-31); MEAN CORPUSCULAR HGB CONC 32 % (32-36); MEAN CORPUSCULAR VOLUME 93 fL (79.0-98.0); MONOCYTES # (AUTO) 0.3 K/uL (0.0-1.0); MONOCYTES % (AUTO) 4.4 % (1.7-9.3); NEUTROPHILS # (AUTO) 6.4 K/uL (1.8-7.7); NEUTROPHILS % (AUTO) 82.1 % (40.0-70.0); PLATELET COUNT (AUTO) 294 K/uL (130-430); RED BLOOD CELL COUNT(AUTO) 2.94 MIL/uL (4.2-6.2); RED CELL DISTRIBUTION WIDTH 18.7 % (9.0-15.0); WHITE BLOOD COUNT (AUTO) 7.7 K/uL (4.8-10.8)
[2017-03-04 06:30] LABS: CALCIUM 8.4 mg/dL (8.4-11.0); CREATININE 2.92 mg/dL (0.55-1.30)
[2017-03-04] MEDS: INSULIN REGULAR, HUMAN 100 UNITS/ML, 10 ML VIAL (novoLIN R) SUBCUT PRN ×3 (06:44→17:53)
--- NOTE | 2017-03-04 07:37 | NUR ---
closing nursing notes: Patient is awake, alert and oriented X 4. Patient is in no acute respiratory distress. No episodes of fall and no injuries throughout the trade embalmer. Provided nursing report to incoming morning shift nurse, ASA Oneill, at patient's bedside.
--- NOTE | 2017-03-04 08:00 | NUR ---
INITIAL NOTE PT LAYING IN BED, RESTING, NO S/S OF DISTRESS, COMPLAINS OF PAIN TO BILATERAL LOWER EXTREMITIES, WILL FOLLOW UP WITH PAIN MANAGEMENT, VSS, IV TO RIGHT UPPER ARM IN PLACE, SALINE LOCKED, AV SHUNT TO LEFT ARM NOTED, LEFT BKA NOTED, DRESSING CLEAN DRY AND INTACT, PLAN OF CARE DISCUSSED, PT VERBALIZED UNDERSTANDING, WILL FOLLOW UP
[2017-03-04 08:11] VITALS: BP 119/66; PULSE 110; RESP 18; TEMP 98.7; O2SAT 98
[2017-03-04] MEDS: FUROSEMIDE 40 MG TABLET PO SCH (08:54)
[2017-03-04] MEDS: PANTOPRAZOLE SODIUM 40 MG TAB PO SCH (08:55)
[2017-03-04] MEDS: CALCIUM ACETATE 667 MG CAP PO SCH ×3 (08:55→17:47)
[2017-03-04] MEDS: NEPHROVITE, (FOLIC ACID/VITAMIN B COMP W-C 1 TAB) PO SCH (08:55)
[2017-03-04] MEDS: GABAPENTIN 400 MG CAPSULE PO SCH ×3 (08:55→21:41)
[2017-03-04] MEDS: DOCUSATE SODIUM 100 MG CAPSULE PO SCH ×2 (08:55→21:41)
[2017-03-04] MEDS: ASPIRIN 81 MG TABLET(ECOTRIN) PO SCH (08:55)
[2017-03-04] MEDS: FOLIC ACID 1 MG TABLET PO SCH ×2 (08:55→09:00)
[2017-03-04] MEDS: METOPROLOL TARTRATE 50 MG TABLET PO SCH ×2 (08:56→21:41)
[2017-03-04] MEDS: amLODIPine BESYLATE 10 MG TABLET PO SCH (08:56)
[2017-03-04] MEDS: HYDROcodone/ACETAMIN 5-325 MG TAB (NORCO/ VICODIN) PO PRN (08:59)
--- NOTE | 2017-03-04 10:12 | NUR ---
DR MENDOSA MAKING ROUNDS, ORDERS RECEIVED WILL CARRY OUT AND CONTINUE TO MONITOR PATIENT
--- NOTE | 2017-03-04 11:06 | NUR ---
DISCHARGE PLANNING DC order back to SNF. Faxed SNF referral to [facility]. Spoke with Mable in admitting who stated patient was in ISO room for C-Diff prior to this current hospital admission. Mable stated facility currently has no non-ISO bed available for patient discharge at this time. Mable will see about making bed available for patient and requested documentation confirming patient C-Diff status for appropriate bed assignment. LISANDRO Mitchell made aware. DCP will follow up. Addendum: 03/04/17 at 1449 by Kourtney ODONNELL Spoke with Mable at [facility] patient assigned to room 102A RN to report [phone], bed available anytime. ASA Oneill could not be reached. Called patient daughter Donna Pulido [phone] left voice message requesting return call back. Called [facility] [phone] spoke with insurance LISANDRO Hinton any ambulance can be arranged transport insurance auth#[id number]. Called [facility] ambulance [phone] spoke with Brayden placed S transport on will call. Transportation packet in nurses station. Addendum: 03/04/17 at 1552 by Kourtney ODONNELL ASA Oneill made aware. Called [facility] arranged transport sweet pickle maker between 6:30-7pm. Second call made to patient daughter Donna [phone] detailed voice message left with time ambulance arranged for patient discharge back to [facility].
[2017-03-04] MEDS: BUDESONIDE 0.5 MG/2 ML AMPUL.NEB INH SCH (11:33)
--- NOTE | 2017-03-04 12:00 | NUR ---
ACCUCHECK 214, COVERED PER SLIDING SCALE. PT TOLERATED WELL. PT PLACED IN SITTING POSITION AND MEAL TRAY SET UP, PT STATES SHE HAS NO OTHER NEEDS AT THIS TIME, CALL LIGHT PLACED WITHIN REACH, BED IN LOW POSITION AND LOCKED, WILL CONTINUE TO MONITOR
[2017-03-04 12:09] VITALS: BP 100/78; PULSE 81; RESP 19; TEMP 96.6; O2SAT 100
--- NOTE | 2017-03-04 13:00 | NUR ---
DC planning: Called and s/w dr. Flanagan regarding CDIFF. The pt. had CDIFF positive testing 1 day prior to admission at [facility]. The pt. presented no symptoms, no diarrhea since admission. So that , the isolation was not observed and treated. Per dr. Flanagan, the pt. does not need to be isolated. " He will document on progress note accordingly". Lauren made aware and to request for bed at [facility]. 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
--- NOTE | 2017-03-04 14:23 | NUR ---
ROUNDS PT RESTING, EVEN RISE AND FALL OF CHEST NOTED, NO S/S OF DISTRESS OR PAIN, CALL LIGHT WITHIN REACH, SAFETY AND ISOLATION PRECAUTIONS IN PLACE, WILL CONTINUE TO MONITOR
[2017-03-04 16:00] VITALS: BP 103/75; PULSE 95; RESP 18; TEMP 97.5; O2SAT 98; O2SAT 99
--- NOTE | 2017-03-04 17:00 | NUR ---
WOUND EVALUATION: Wound Consult received from Dr. Flanagan. Thank you, Dr. Flanagan, for the consult. Patient received in a [place] Bed with a mattress, awake, alert, and oriented. Patient is unable to turn independently. Ar Score is a 14. Past Medical History: Diabetes Mellitus, severe peripheral arterial disease, recent left BKA, ESRD with hemodialysis, HTN, left arm AV Shunt thrombectomy, left toe amputations. Recent Labs: WBC 7.7, RBC 2.94, hemoglobin 8.6, hematocrit 27.2, potassium 3.0, BUN 13, creatinine 2.92, GFR 17, glucose 177, albumin 2.0, PTT 25.9. Intrinsic factors that delay wound healing: Diabetes mellitus, severe peripheral arterial disease. Extrinsic factors that delay wound healing: Decreased mobility. Microbiology: Blood culture 2 in progress. MRSA screen results positive. Wound Assessment: 1) left buttock: Moisture associated wound/IAD, present on admission. 5% red tissue, 95% pink tissue. No odor, no drainage. Measures 1.0 cm x 1.5 cm. 2) left buttock, inferior to wound 1: Moisture associated wound/IAD, present on admission. 100% pink tissue. No odor, no drainage. Measures 0.5 cm x 0.8 cm. 3) left sacral: Moisture associated wound/IAD, present on admission. 100% pink tissue. No odor, no drainage. Measures 0.2 cm x 0.3 cm. 4) left sacral, inferior to wound 3: Moisture associated wound/IAD, present on admission. 100% pink tissue. No odor, no drainage. Measures 0.8 cm x 0.2 cm. Recommend: Cleanse wounds with normal saline. Pat dry. Cover wounds and periwounds with moisture barrier cream. Put hydrogel onto any parts of wounds not covered by barrier cream. Cover with sacral foam dressing. Perform wound care daily, and as needed for dressing soiling or dislodgment. 5) right buttocks/ischial tuberosity area: Unstageable pressure ulcer, present on admission. Wound bed is 5% red tissue, 15% pink tissue, 60% dark yellow/black tissue, 20% yellow tissue. No odor, no drainage. Measures 5.2 cm x 5.0 cm. Recommend: Cleanse wound with normal saline. Put moisture barrier cream onto periwound. Put hydrogel onto wound bed. Cover with foam dressing. Perform wound care daily, and as needed for dressing soiling or dislodgment. 6) left residual limb, anterior distal aspect: Wound, present on admission. Wound bed is 55% pink tissue 35% black tissue, 5% red tissue, fibrous and white tissue. No odor, no drainage. Measures 2.0 cm x 1.5 cm Recommend: Cleanse wound with normal saline. Pat dry. Cover wound and periwound with moisture barrier cream. Put hydrogel onto any part of wound not covered by barrier cream. Cover with sacral foam dressing. Perform wound care daily, and as needed for dressing soiling or dislodgment. 7) left residual limb, posterior and inferior aspect: Wound, present on admission. 95% black eschar, 5% yellow tissue. No odor, scant yellow purulent drainage. Eschar has a soft feel underneath it. Sutures present along inferior aspect of residual limb, with black crusty eschar. Measures 16.5 cm x 3.7 cm. Recommend: Cleanse wound with normal saline. Put moisture barrier cream onto periwound. Put hydrogel onto wound bed. Cover with foam dressing. Perform wound care daily, and as needed for dressing soiling or dislodgment. 8) right heel: Unstageable pressure ulcer, present on admission. Wound bed is 100% black eschar. No odor, no drainage. Periwound is pink with scar tissue. Measures 2.5 cm x 2.1 cm Recommend: Cleanse wound with normal saline. Put moisture barrier cream onto periwound. Put hydrogel onto wound bed. Cover with foam dressing. Perform wound care daily, and as needed for dressing soiling or dislodgment. 9) left upper extremity: AV shunt site, status post recent thrombectomy, present on admission. Dressing was falling off. Site was assessed, no odor no drainage no open wound visible. Sterile dressing was applied. Recommend: Continue to keep site covered with sterile dressing. Change dressing once a week. Also recommend: Reposition patient [id number] only every 2 hours with pillow support, and off-load pressure areas with pillows for pressure re-distribution. Offload, elevate and float bilateral right heel and left residual limb with pillows. Perform skin care and monitor skin integrity Q shift. Use moisture barrier cream on buttocks and other moisture susceptible areas QID and as needed for soiling. Place patient on a low air-loss mattress. Addendum: 03/04/17 at 2 by Sina Durham RN Error: Treatment for wound #7 should be: Recommend: Cleanse wound with normal saline. Put moisture barrier cream onto periwound. Put oil emotion dressing onto incision site. Put hydrogel onto wound bed. Cover with foam dressing. Perform wound care daily, and as needed for dressing soiling or dislodgment. Wound #6 dressing should be foam dressing, not sacral foam dressing.
--- NOTE | 2017-03-04 17:00 | NUR ---
WOUND CARE COMPLETED TO VARIOUS WOUNDS WITH WOUND CARE NURSE DELMY.
--- NOTE | 2017-03-04 18:10 | NUR ---
REPORT GIVEN TO KINSEY FISHMAN, ASA UPDATED ON PATIENT CARE, TRANSFER ORDERS AND HISTORY, RN GIVEN CONTACT INFORMATION INCASE ANY FURTHER QUESTIONS, PT AWARE OF PENDING DISCHARGE, WILL FOLLOW UP
--- NOTE | 2017-03-04 18:45 | NUR ---
INITIAL NOTE PT LAYING IN BED, READY FOR TRANSPORTATION TO [facility], NO S/S OF DISTRESS OR COMPLAINT OF PAIN, VSS, SEVERAL DRESSINGS TO BILATERAL LOWER EXTREMITIES AND SACRUM DRY CLEAN AND INTACT, IV SITE DISCONTINUED AND PRESSURE DRESSING IN PLACE, LEFT AV SHUNT DRESSING IN PLACE, NO S/S OF BLEEDING NOTED, ALL NEEDS ATTENDED TO THROUGH OUT SHIFT, SAFETY AND ISOLATIONS PRECAUTIONS MAINTAINED, CALL LIGHT WITHIN REACH, BED IN LOW POSITION AND LOCKED, WILL GIVE REPORT TO FOLLOWING SHIFT. Addendum: 03/04/17 at 1944 by Mai Hook RN NOT INITIAL NOT- THIS WAS CLOSING NOTE FOR PATIENT
--- NOTE | 2017-03-04 19:23 | NUR ---
notes received the pt from the day nurse,[facility] is here but states the pt can not fit on the stretcher.another ambulance is on the way ,eta 30 min.
[2017-03-04] MEDS: ATORVASTATIN 20 MG TABLET PO SCH (21:41)
--- NOTE | 2017-03-04 21:53 | NUR ---
notes ambulance is here pt transported to [facility] with transfer packet.
== END 2017-03-04 21:53 | DRG 252 ==
LOC: SED 23:30 → STU 03-01 00:59 → SMU 03-01 13:17
PROVIDERS: ADMIT Family Medicine; ATTEND Family Medicine
PROC: 03CY0ZZ Extirpation of Matter from Upper Artery, Open Approach (ICD-10-PCS; principal; 2017-03-01 10:00)
DX: T82.41XA Breakdown (mechanical) of vascular dialysis catheter, initial encounter (principal); N18.6 End stage renal disease; D68.59 Other primary thrombophilia; I13.2 Hypertensive heart and chronic kidney disease with heart failure and with stage 5 chronic kidney disease, or end stage renal disease; Z68.41 Body mass index [BMI] 40.0-44.9, adult; E11.65 Type 2 diabetes mellitus with hyperglycemia; E11.40 Type 2 diabetes mellitus with diabetic neuropathy, unspecified; K21.9 Gastro-esophageal reflux disease without esophagitis; J44.9 Chronic obstructive pulmonary disease, unspecified; E66.01 Morbid (severe) obesity due to excess calories; E11.51 Type 2 diabetes mellitus with diabetic peripheral angiopathy without gangrene; E11.22 Type 2 diabetes mellitus with diabetic chronic kidney disease; I50.9 Heart failure, unspecified; D63.1 Anemia in chronic kidney disease; N25.0 Renal osteodystrophy; Z88.0 Allergy status to penicillin; Z88.2 Allergy status to sulfonamides; Z88.8 Allergy status to other drugs, medicaments and biological substances; Z91.041 Radiographic dye allergy status; Z91.040 Latex allergy status; Z99.2 Dependence on renal dialysis; Z79.82 Long term (current) use of aspirin; Z79.899 Other long term (current) drug therapy
CPT/HCPCS: 36415; 71010; 80048; 80053; 82150-TC; 82962; 83036; 83605; 83690-TC; 83735-TC; 84100-TC; 85007; 85025; 85027; 85610-TC; 85730-TC; 87040-TC; 87070-TC; 87081; 88304; 88305; 90935; 90937; 93005; 94640; 94760; 96365; 96366; 99291; C1751; J1644; J1815; J2250; J2270; J3370; J7030; J7050